=== PATIENT | male | born 1950 | race African-American/Black ===

== ENCOUNTER 2018-08-24 05:55 | Emergency (ER) | payer OTHER ==
--- OUTSIDE RECORDS SUMMARY | 2018-08-24 05:58 | XMS REPORT ---
:1950 [facility] [address] [place] [address] [address] [place] [address] Care Team Providers Name Role Phone Unavailable Unavailable Unavailable Problems This patient has no known problems. Allergies, Adverse Reactions, Alerts This patient has no known allergies or adverse reactions. Medications This patient has no known medications.
[2018-08-24 07:04] LABS: Absolute Lymphocytes (CBC) 2.1 K/uL (0.7-4.9); Absolute Monocytes 0.6 K/uL (0.1-1.3); Absolute Neutrophil 2.7 K/uL (1.8-8.0); Basophils % 0.5 % (0-1.3); Eosinophils % 2.7 % (0-4.4); Hematocrit 41.6 % (39.6-49.0); Lymphocytes % 37.4 % (15.3-44.8); Monocytes % 10.6 % (3.3-12.3); RBC Red Blood Cell Count 4.85 M/uL (4.33-5.43)
[2018-08-24 07:06] LABS: Protime INR 0.91
[2018-08-24 07:25] LABS: ALT/SGPT 21 U/L (12-78); AST/SGOT 15 U/L (15-37); Albumin 3.6 g/dL (3.4-5.0); Alkaline Phosphatase 72 U/L (45-117); BUN Blood Urea Nitrogen 14 mg/dL (7-18); Bicarbonate 29 mmol/L (21-32); Bilirubin Direct 0.1 mg/dL (0-0.2); Bilirubin Total 0.5 mg/dL (0.2-1.0); Glucose Level 110 mg/dL (74-106); Magnesium 1.8 mg/dL (1.8-2.4); NT PRO-BNP 46 pg/mL (<125); Potassium 4.1 mmol/L (3.5-5.1); Protein, Total 7.9 g/dL (6.4-8.2); Sodium Level 140 mmol/L (136-145); Troponin (Emerg Dept Use Only) < 0.02 ng/mL (0.0-0.045)
[2018-08-24] MEDS ORDERED: MECLIZINE HCL 12.5 MG TAB ONE (07:52)
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
[2018-08-24 08:24] VITALS: TEMP 97.8
[2018-08-24 08:27] VITALS: BP 120/80; O2SAT 100
--- NOTE | 2018-08-24 08:34 | RAD REPORT ---
EXAM DESCRIPTION: Kerry Single View08/24/2018 6:58 am CLINICAL HISTORY: Hypertension COMPARISON: none FINDINGS: The lungs appear clear of acute infiltrate. The heart is normal size IMPRESSION: No acute abnormalities displayed
--- NOTE | 2018-08-24 08:37 | EKG ---
Test Date: 2018-08-24 Test Time: 06:21:26 [employer]op Riveting Machine Operator: PRATIK MEASUREMENT RESULTS: Intervals: Rate: 63 AK: 226 QRSD: 82 QT: 396 QTc: 405 [place]: P: 8 AK: 226 QRS: 25 T: 33 INTERPRETIVE STATEMENTS: Sinus rhythm with 1st degree AV block Otherwise normal ECG Compared to ECG 01/11/2017 17:01:50 First degree AV block now present Electronically Signed On 08-24-18 08:36:28 CDT by Seng Virgen
--- NOTE | 2018-08-24 11:54 | RAD REPORT ---
EXAM DESCRIPTION: CT - Head Brain Wo Cont - 08/24/2018 6:47 am CLINICAL HISTORY: The patient is 68 years old and is Male; DIZZINESS TECHNIQUE: Axial computed tomography images of the head/brain without intravenous contrast. Sagitt al and coronal reformatted images were created and reviewed. This CT exam was performed using one o r more of the following dose reduction techniques: automated exposure control, adjustment of the mA and/or kV according to patient size, and/or use of iterative reconstruction technique. COMPARISON: No relevant prior studies available. FINDINGS: BRAIN: Unremarkable. The dougherty-white matter differentiation is preserved . No hemorrhag e. No significant white matter disease. No edema. No extra-axial fluid collections. VENTRICLES: Unremarkable. No ventriculomegaly. BONES/JOINTS: No acute fracture. SOFT TISSUES: Unremarkable. SINUSES: Unremarkable as visualized. No acute sinusitis. MASTOID AIR CELLS: Unremarkable as visualized. No mastoid effusion. IMPRESSION: No acute intracranial findings. Electronically signed by: Tammy Link MD 08/24/2018 6:41 AM CDT Due to temporary technical issues with the PACS/Fluency reporting system, reports are being signed by the in house radiologist as a courtesy to ensure prompt reporting. The interpreting radiologist is f ully responsible for the content of the report.
== END 2018-08-24 08:18 | disposition home or self-care (01) ==
LOC: ER 05:55
DX: H81.10 Benign paroxysmal vertigo, unspecified ear (principal); E11.9 Type 2 diabetes mellitus without complications; I10 Essential (primary) hypertension; Z79.84 Long term (current) use of oral hypoglycemic drugs
CPT/HCPCS: 36415; 70450; 71045; 80048; 80076; 82962; 83735; 83880; 84484; 85025; 85610; 93005; 99284

== ENCOUNTER 2020-02-17 01:52 | Emergency (ER) | payer OTHER ==
--- OUTSIDE RECORDS SUMMARY | 2020-02-17 01:55 | XMS REPORT | Summary of Care ---
:1950 Author Organization [facility] - [facility] Address [address] [place] [address] Care Team Providers Name Role Phone Samuel Oliver MD Insurance Hmo Samuel Oliver MD Primary Care Provider Reason for Visit Reason Comments Refill Request Encounter Details Date Type Department Care Team Description 01/20/[address] [facility] Pediatric and Samuel Siegel MD Refill Request Adult Primary Care- [address] [facility] [id number] [place] [address] [phone] Allergies No Known Allergiesdocumented as of this encounter (statuses as of 01/22/2020) Medications Medication Sig Dispensed Refills Start End Date Status Date fluticasone 50 Use 1 [place] in 16 g 2 Active mcg/actuation nasal each nostril 2 9 sprayIndications: (two) times Allergic rhinitis, daily. unspecified seasonality, unspecified trigger albuterol (PROAIR Inhale 2 Puffs 8.5 g 1 Active HFA) 90 every 4 (four) 9 mcg/actuation hours as inhalerIndications: needed for Allergic rhinitis, Wheezing or unspecified Shortness of seasonality, Breath. unspecified trigger vitamin B-12 Take 1 tablet 90 tablet 0 Act [place] (VITAMIN B-12) by mouth 9 1,000 mcg daily. tabletIndications: Weakness of both lower extremities, B12 deficiency B Complex Vitamins Take 1 tablet 30 tablet 1 Active (B-COMPLEX) by mouth 9 tabletIndications: daily. Weakness of both lower extremities, B12 deficiency furosemide 20 mg Take 1.5 135 tablet 3 Ac tive tabletIndications: tablets by 9 Essential mouth daily. hypertension atorvastatin 10 mg Take 1 tablet 90 tablet 1 Active tabletIndications: by mouth at 9 Controlled type 2 bedtime. diabetes mellitus without complication, without long-term current use of insulin foLIC acid 1 mg Take 1 tablet 30 tablet 0 Active tabletIndications: by mouth 9 Weakness of both daily. lower extremities, B12 deficiency, Dietary folate deficiency Diclofenac Sodium Apply 2-5 100 g 3 Ac tive (VOLTAREN) 1 % grams to 9 gelIndications: area(s) 2 Osteoarthritis of (two) times right knee, daily. unspecified osteoarthritis type, Chronic pain of right knee lancets-blood 1 Each 2 (two) 100 Each 11 A ctive glucose strips 30 times daily. 0 gauge DX E11.9 CmpkIndications: (Brand upon Controlled type 2 insurance diabetes mellitus approval) without complication, without long-term current use of insulin pioglitazone 15 mg Take 1 tablet 90 tablet 3 Active tabletIndications: by mouth 0 Controlled type 2 daily. diabetes mellitus without complication, without long-term current use of insulin blood sugar CHECK SUGARS 1 100 Strip 11 Act katlin diagnostic TIMES A DAY. 0 (PureEnergy SolutionsUCH ULTRA DX CODE E11.9. BLUE TEST STRIP) BRAND PER stripIndications: INSURANCE. Controlled type 2 diabetes mellitus without complication, without long-term current use of insulin Blood-Glucose Meter Check sugars 1 1 Kit 0 Active KitIndications: times a day. 0 Controlled type 2 Dx Code E11.9. diabetes mellitus Brand per without insurance. complication, without long-term current use of insulin LISINOPRIL 20 mg Take 1 tablet 30 tablet 0 Active tabletIndications: by mouth once 0 Essential daily hypertension metFORMIN 1,000 mg Take 1 tablet 60 tablet 0 Active tabletIndications: by mouth 2 0 Controlled type 2 (two) times diabetes mellitus daily with without meals. complication, without long-term current use of insulin METFORMIN 1,000 mg TAKE 1 TABLET 180 tablet 0 Discontinued tabletIndications: BY MOUTH TWICE 0 20 (Reorder) Controlled type 2 DAILY WITH diabetes mellitus MEALS without complication, without long-term current use of insulin LISINOPRIL 20 mg Take 1 tablet 90 tablet 0 01/22/20 Discontinued tabletIndications: by mouth once 0 20 Essential daily hypertension documented as of this encounter (statuses as of 01/22/2020) Active Problems Problem Noted Date Need for influenza vaccination 06/14/2019 Dietary folate deficiency 06/14/2019 Encounter for medication review 01/24/2019 Need for home health care 01/17/2019 Chronic pain of right hand 01/17/2019 Chronic pain of right knee 01/17/2019 Weakness of both lower extremities 01/17/2019 Low testosterone in male 01/17/2019 B12 deficiency 01/17/2019 Need for pneumococcal vaccination 12/22/2018 Diabetic eye exam 12/26/2016 Overview: Added automatically from request for faiza godwin [id number] Essential hypertension 11/26/2016 Osteoarthritis of right knee, unspecified osteoarthrit is type 11/26/2016 Erectile dysfunction, unspecified erectile dysfunction type 11/26/2016 Controlled type 2 diabetes mellitus without complicati on, without 11/26/2016 long-term current use of insulin Obesity, Class III, BMI 40-49.9 (morbid obesity) 11/26 documented as of this encounter (statuses as of 01/22/2020) Resolved Problems Problem Noted Date Resolved Date 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/2017 11/10/2018 Overview: Added automatically from request for faiza godwin [id number] Hemorrhoids, unspecified hemorrhoid type 05/06/2017 11/10/2018 Overview: Added automatically from request for faiza citlali [id number] Nonulcer dyspepsia 12/31/2016 11/10/2018 First degree hemorrhoids 11/26/2016 11/10/2018 documented as of this encounter (statuses as of 01/22/2020) Immunizations Name Administration Dates Next Due Influenza High Dose 06/14/2019 Pneumococcal Polysaccharide, PPSV23 (PNEUMOVAX) 12/20/2018 documented as of this encounter Social History Tobacco Use Types Packs/Day Years Used Date Former Smoker Smokeless Tobacco: Never Used Alcohol Use Drinks/Week oz/Week Comments No 0 Standard drinks or equivalent 0.0 Sex Assigned at Date Recorded Not on file documented as of this encounter Last Filed Vital Signs Not on filedocumented in this encounter Miscellaneous Notes Telephone Encounter - Samuel Oliver MD - 01/22/2020 8:21 AM CDTRx sent x 30 days. Patient to f/u as scheduled. elephone Encounter - Sonam Freedman - 01/21/2020 4:02 PM CDTPatient is calling regarding the refill requesting and is stating that he will be out in a few days. documented in this encounter Plan of Treatment Date Type Specialty Care Team Description 02/12/2020 Office Visit Family Medicine Samuel Oliver MD [address] [place] [address] Dr [address] [place], [place] [address] [phone] Health Maintenance Due Date Last Done Comments DTaP,Tdap,and Td Vaccines (1 - 1969 Tdap) COLON CANCER SCREENING ANNUAL 01/26/2000 FIT/FOBT COLON CANCER SCREENING FIT DNA 01/26/2000 EVERY 3 YEARS COLON CANCER SCREENING 01/26/2000 SIGMOIDOSCOPY EVERY 5 YEARS Zoster Recombinant Vaccine 01/26/2000 (SHINGRIX) (1 of 2) EYE EXAM 01/12/2019 01/12/2018, 01/12/2017 (Previously completed) LDL-C 11/11/2019 11/10/2018, 03/09/2017 URINE MICROALBUMIN 11/11/2019 11/10/2018, 03/09/2017 HgA1C 12/13/2019 06/14/2019, 12/20/2018, 03/06/2018, Additional history exists CREATININE (SERUM) 12/21/2019 12/20/2018, 03/06/2018, 03/09/2017 Medicare Wellness Visit 12/21/2019 12/20/2018, 12/20/2018 INFLUENZA VACCINE (#1) 2020 06/14/2019 FOOT EXAM 01/04/2020 01/03/2019, 01/03/2019, 12/20/2018, Additional history exists Depression Screening 06/14/2020 06/14/2019 COLONOSCOPY 05/26/2027 05/26/2017 Colorectal Cancer Screening 05/26/2027 HEPATITIS C (HCV) SCREEN Completed 03/09/2017 PNEUMOCOCCAL VACCINES 65+ Completed 12/20/2018 LUNG CANCER SCREEN: Recommended Discontinued for age 55-80 with 30 + pack year history documented as of this encounter Results Not on filedocumented in this encounter Visit Diagnoses Diagnosis Essential hypertension Unspecified essential hypertension Controlled type 2 diabetes mellitus with out complication, without long-term current use of insulin documented in this encounter Insurance Payer Benefit Plan / Subscriber ID Effective Phone Address T ype Group Dates [facility] [id number] 2017-Pres Medica re HEALTHCARE - HEALTHCARE ent Adv HM O MANAGED DUAL COMPLETE MEDICARE O [facility] MEDICAID OF [id number] 2016-Pres [phone] [facility] ent [phone] [place] [address] [facility] [id number] 2017-Pres Medica re HEALTHCARE - HEALTHCARE ent Adv PP O MANAGED DUAL COMPLETE MEDICARE [employer] PAID BY I PAID BY [id number] 2016-Pres 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
--- OUTSIDE RECORDS SUMMARY | 2020-02-17 01:55 | XMS REPORT | Summary of Care ---
:1950 Author Organization [facility] - [facility] Address [address] [place] [address] Care Team Providers Name Role Phone Samuel Oliver MD Insurance Hmo Samuel Oliver MD Primary Care Provider Reason for Visit Reason Comments Refill Request Encounter Details Date Type Department Care Team Description 01/05/2020 Refill [facility] Pediatric and Samuel Siegel MD Refill Request Adult Primary Care- [address] [facility] [id number] [place] [address] [phone] Allergies No Known Allergiesdocumented as of this encounter (statuses as of 01/08/2020) Medications Medication Sig Dispensed Refills Start Date End Date Status fluticasone 50 Use 1 [place] in 16 g 2 07/19/2018 Active mcg/actuation nasal each nostril 2 sprayIndications: (two) times Allergic rhinitis, daily. unspecified seasonality, unspecified trigger albuterol (PROAIR HFA) Inhale 2 Puffs 8.5 g 1 07/19/2018 Active 90 mcg/actuation every 4 (four) inhalerIndications: hours as needed Allergic rhinitis, for Wheezing or unspecified Shortness of seasonality, Breath. unspecified trigger vitamin B-12 (VITAMIN Take 1 tablet by 90 tablet 0 01/17/2019 Active B-12) 1,000 mcg mouth daily. tabletIndications: Weakness of both lower extremities, B12 deficiency B Complex Vitamins Take 1 tablet by 30 tablet 1 01/17/2019 Active (B-COMPLEX) mouth daily. tabletIndications: Weakness of both lower extremities, B12 deficiency furosemide 20 mg Take 1.5 tablets 135 tablet 3 01/17/2019 Active tabletIndications: by mouth daily. Essential hypertension atorvastatin 10 mg Take 1 tablet by 90 tablet 1 01/17/2019 Active tabletIndications: mouth at bedtime. Controlled type 2 diabetes mellitus without complication, without long-term current use of insulin foLIC acid 1 mg Take 1 tablet by 30 tablet 0 01/17/2019 Active tabletIndications: mouth daily. Weakness of both lower extremities, B12 deficiency, Dietary folate deficiency Diclofenac Sodium Apply 2-5 grams 100 g 3 2019 Active (VOLTAREN) 1 % to area(s) 2 gelIndications: (two) times Osteoarthritis of daily. right knee, unspecified osteoarthritis type, Chronic pain of right knee lancets-blood glucose 1 Each 2 (two) 100 Each 11 06/14/2019 Active strips 30 gauge times daily. DX CmpkIndications: E11.9 (Brand upon Controlled type 2 insurance diabetes mellitus approval) without complication, without long-term current use of insulin pioglitazone 15 mg Take 1 tablet by 90 tablet 3 06/14/2019 Active tabletIndications: mouth daily. Controlled type 2 diabetes mellitus without complication, without long-term current use of insulin blood sugar diagnostic CHECK SUGARS 1 100 Strip 11 07/28/2019 Active (ONETOUCH ULTRA BLUE TIMES A DAY. DX TEST STRIP) CODE E11.9. BRAND stripIndications: PER INSURANCE. Controlled type 2 diabetes mellitus without complication, without long-term current use of insulin Blood-Glucose Meter Check sugars 1 1 Kit 0 07/28/2019 Active KitIndications: times a day. Dx Controlled type 2 Code E11.9. Brand diabetes mellitus per insurance. without complication, without long-term current use of insulin METFORMIN 1,000 mg TAKE 1 TABLET BY 180 tablet 0 10/22/2019 Active tabletIndications: MOUTH TWICE DAILY Controlled type 2 WITH MEALS diabetes mellitus without complication, without long-term current use of insulin LISINOPRIL 20 mg Take 1 tablet by 90 tablet 0 10/28/2019 Active tabletIndications: mouth once daily Essential hypertension documented as of this encounter (statuses as of 01/08/2020) Active Problems Problem Noted Date Need for [...] Added automatically from request for faiza godwin [id number] Essential hypertension 11/26/2016 Osteoarthritis of right knee, unspecified osteoarthrit is type 11/26/2016 Erectile dysfunction, unspecified erectile dysfunction type 11/26/2016 Controlled type 2 diabetes mellitus without complicati on, without 11/26/2016 long-term current use of insulin Obesity, Class III, BMI 40-49.9 (morbid obesity) 11/26 documented as of this encounter (statuses as of 01/08/2020) Resolved Problems Problem Noted Date Resolved Date 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/2017 11/10/2018 Overview: Added automatically from request for faiza godwin [id number] Hemorrhoids, unspecified hemorrhoid type 05/06/2017 11/10/2018 Overview: Added automatically from request for faiza godwin [id number] Nonulcer dyspepsia 12/31/2016 11/10/2018 First degree hemorrhoids 11/26/2016 11/10/2018 documented as of this encounter (statuses as of 01/08/2020) Immunizations Name Administration Dates Next Due Influenza [...] Telephone Encounter - Samuel Oliver MD - 01/08/2020 4:31 PM CDTAppointment and updated labs required, let patient know documented in this encounter Plan of Treatment Health Maintenance Due Date Last Done Comments [...] filedocumented in this encounter Visit Diagnoses Diagnosis Controlled type 2 diabetes mellitus with out complication, without long-term current use of insulin documented in this encounter Insurance Payer Benefit Plan / Subscriber ID Effective Phone Address T ype Group Dates [facility] [id number] 2017-Pres Medica re HEALTHCARE - HEALTHCARE ent Adv HM O MANAGED DUAL COMPLETE MEDICARE HMO [employer] MEDICAID OF [id number] 2016-Pres [phone] [place] ent [phone] [place] [address] [facility] [id number] 2017-Pres Medica re HEALTHCARE - HEALTHCARE ent Adv PP O MANAGED DUAL COMPLETE MEDICARE [employer] PAID BY I PAID BY [id number] 2016-Pres 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
--- OUTSIDE RECORDS SUMMARY | 2020-02-17 01:55 | XMS REPORT | Continuity of Care Document ---
:1950 Author Organization [facility] t Address [address] [place] [address] Care Team Providers Name Role Phone Melody CHEUNG Attending Clinician Bijan Mera MD Attending Clinician Doctor Unassigned, Name Attending Clinician Unavailable Problems This patient has no known problems. Allergies, Adverse Reactions, Alerts This patient has no known allergies or adverse reactions. Medications This patient has no known medications. Procedures This patient has no known procedures. Encounters Start End Encounter Admission Attending Care Care Encounter Source Date/Time Date/Time Type Type Clinicians Facility Department ID 2020-01-20 2020-01-20 Refill [facility] 1.2.840.114 [id number] 00:00:00 00:00:00 Samuel Varner [id number] [place] [id number] Professio [phone] [address] 2020-01-05 2020-01-05 Refill [facility] 1.2.840.114 [id number] 00:00:00 00:00:00 Samuel Varner [id number] [place] [id number] Professio [phone] [address] 2019-10-28 2019-10-28 Refill [facility] [id number] 00:00:00 00:00:00 Samuel Varner [id number] [place] [id number] Professio [phone] [address] 2019-10-22 2019-10-22 Refill [facility] 1.2.840.114 [id number] 00:00:00 00:00:00 Nikole Varner [id number] [place] [id number] Professio [phone] [address] 2019-08-20 2019-08-20 Pre Visit [facility] 1.2.840.114 [id number] 00:00:00 00:00:00 Outreach Nikole Varner [id number] [place] [id number] Professio [phone] [address] 2019-07-31 2019-07-31 Telephone [facility] 1.2.840.114 [id number] 00:00:00 00:00:00 Samuel Varner [id number] [place] [id number] Professio [phone] [address] 2019-07-31 2019-07-31 Orders Doctor ANTOINE 1.2.840.114 [id number] 00:00:00 00:00:00 Only Unassigned, COLT [id number] [facility] 4.2.7.2.686 [phone] 009 2019-07-27 2019-07-27 Telephone [facility] 1.2.840.114 [id number] 00:00:00 00:00:00 Samuel Varner [id number] [place] [id number] Professio [phone] [address] 2019-07-20 2019-07-20 Orders Doctor ANTOINE 1.2.840.114 [id number] 00:00:00 00:00:00 Only Unassigned, COLT [id number] [facility] 4.2.7.2.686 [id number] [id number] 2019-07-18 2019-07-18 Refill [facility] 1.2.840.114 [id number] 00:00:00 00:00:00 Samuel Varner [id number] [place] 4.2.7.2.686 Professio [phone] [address] 2019-07-18 2019-07-18 Refill [facility] 1.2.840.114 [id number] 00:00:00 00:00:00 Samuel Varner [id number] [place] 4.2.7.2.686 Professio [phone] [address] 2019-07-02 2019-07-02 [facility] 1.2.840.114 [id number] 00:00:00 00:00:00 Samuel Varner [id number] [place] [id number] Professio [phone] [address] 2019-06-28 2019-06-28 [facility] 1.2.840.114 [id number] 00:00:00 00:00:00 Samuel Varner [id number] [place] [id number] Professio [phone] [address] 2019-06-22 2019-06-22 [facility] 1.2.840.114 [id number] 00:00:00 00:00:00 Samuel Varner [id number] [place] [id number] Professio [phone] [address] 2019-06-14 2019-06-14 Office [facility] 1.2.840.114 [id number] 07:28:15 08:33:50 Visit Samuel Varner [id number] [place] [id number] Professio [phone] [address] Results This patient has no known results.
[2020-02-17 03:02] LABS: Absolute Lymphocytes (CBC) 2.2 K/uL (0.7-4.9); Basophils % 0.6 % (0-1.3); Hematocrit 38.7 % (39.6-49.0); Lymphocytes % 48.2 % (15.3-44.8); RBC Red Blood Cell Count 4.33 M/uL (4.33-5.43)
[2020-02-17] MEDS ORDERED: MECLIZINE HCL 12.5 MG TAB ONE (03:08)
[2020-02-17] MEDS ORDERED: NA CHLORIDE 0.9% 500 ML ONE (03:08)
[2020-02-17 03:22] LABS: ALT/SGPT 20 U/L (12-78); AST/SGOT 11 U/L (15-37); Albumin 3.3 g/dL (3.4-5.0); Alkaline Phosphatase 67 U/L (45-117); BUN Blood Urea Nitrogen 17 mg/dL (7-18); Bicarbonate 29 mmol/L (21-32); Bilirubin Direct < 0.1 mg/dL (0-0.2); Bilirubin Total 0.2 mg/dL (0.2-1.0); Glucose Level 105 mg/dL (74-106); Magnesium 1.9 mg/dL (1.8-2.4); NT PRO-BNP 29 pg/mL (<125); Potassium 4.2 mmol/L (3.5-5.1); Sodium Level 140 mmol/L (136-145); Troponin (Emerg Dept Use Only) < 0.02 ng/mL (0.0-0.045)
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
[2020-02-17 04:33] LABS: Urine Blood NEGATIVE (NEG); Urine Glucose NEGATIVE (NEG); Urine Protein NEGATIVE (NEG); Urine Specific Gravity 1.015 (1.005-1.030); Urine pH 5.5 (5.0-7.0)
[2020-02-17 04:43] VITALS: O2SAT 100
[2020-02-17 04:45] VITALS: BP 134/84; TEMP 98.4
--- NOTE | 2020-02-17 11:55 | RAD REPORT ---
EXAM DESCRIPTION: RAD - Chest Single View - 02/17/2020 3:05 am CLINICAL HISTORY: COUGH Chest pain. COMPARISON: Chest Single View dated 08/24/2018 FINDINGS: Portable technique limits examination quality. The lungs are grossly clear. The heart is upper limit of normal in size. No displaced fractures. IMPRESSION: No acute intrathoracic process suspected.
--- NOTE | 2020-02-17 14:19 | RAD REPORT ---
EXAM DESCRIPTION: CT of the head without contrast CLINICAL HISTORY: DIZZINESS COMPARISON: 08/24/1989 TECHNIQUE: Axial CT of the head obtained from the skull apex to the skull base without contrast. FINDINGS: No acute intracranial hemorrhage identified. No mass, mass effect, shift of the midline, a bnormal extra-axial fluid collection or CT evidence of acute ischemic change identified. The ventricu lar system and sulcal spaces are mildly enlarged compatible with mild cerebral atrophy. Scattered a reas of hypodensity throughout the supratentorial white matter are nonspecific and may be related to chronic small vessel ischemic change. The visualized paranasal sinuses and the mastoids are clear. No skull fracture identified. Visualiz ed orbits and globes are unremarkable. Atherosclerotic calcification of the intracranial internal car otid arteries. IMPRESSION: 1. No acute intracranial abnormality by CT criteria. This exam was performed according to our departmental dose-optimization program, which includes autom ated exposure control, adjustment of the mA and/or kV according to patient size and/or use of iterati ve reconstruction technique. Electronically signed by: Tra Harding 02/17/2020 4:05 AM CDT Electronically signed by: Dieter Starr MD 02/16/2020 7:55 AM CDT [id number] to te mporary technical issues with the PACS/Fluency reporting system, reports are being signed by the in h ouse Radiologist without review as a courtesy to ensure prompt reporting. The interpreting radiologis t is fully responsible for the content of the report.
== END 2020-02-17 04:31 | disposition home or self-care (01) ==
LOC: ER 01:52
DX: R42 Dizziness and giddiness (principal); H82.9 Vertiginous syndromes in diseases classified elsewhere, unspecified ear; E11.9 Type 2 diabetes mellitus without complications; I10 Essential (primary) hypertension
CPT/HCPCS: 93005; 85025; 80048; 36415; 83735; 80076; 81003; 84484; 83880; 70450; 71045; 96360; 99284; J7040

== ENCOUNTER 2022-01-09 11:41 | Emergency (ER) | payer OTHER ==
--- OUTSIDE RECORDS SUMMARY | 2022-01-09 11:49 | XMS REPORT | Continuity of Care Document ---
:1950 Author Organization [facility] t Address [address] [place] [address] Care Team Providers Name Role Phone MELITON OLIVER Primary Care Physician Unavailable MELITON OLIVER Attending Clinician Unavailable Angela SHANNON Attending Clinician Unavailable Angela George Attending Clinician Doctor Unassigned, [place] Attending Clinician Unavailable Meliton Oliver MD Attending Clinician DELFINO CHUNG Attending Clinician Unavailable Nikole Mera MD Attending Clinician [phone] Angela SHANNON Admitting Clinician Unavailable Payers Payer Name Policy Type Policy Number Effective Date Expiration Date S ource [place]ICAID [place] [id number] 2020 00:00:00 [facility] [id number] 2017 DUAL COMPLETE HMO 00:00:00 Problems Condition Condition Condition Status Onset Resolution Last Treating Co mments Source Name Details Category Date Date Treatment Clinician Date Obesity Obesity Disease Active 2020-05 Univers (BMI (BMI 2-22 ity of 30-39.9) 30-39.9) 00:00: [place] [id number] Medical Branch Itchy skin Itchy skin Disease Active U nivers 6-22 ity of 00:00: [address] Branch Allergic Allergic Disease Active Unive rs contact contact 6-22 [place]y of dermatitis [place] to due to 00 Medical cosmetics cosmetics Bran ch Seasonal Seasonal Disease Active Unive rs allergic allergic 6-22 ity of rhinitis rhinitis 00:00: [place] due to due to 00 Medical other other Branch allergic allergic trigger trigger Osteoarthr Osteoarthr Disease Active U nivers itis itis 6-22 ity of involving [place] multiple multiple 00 Medica [place] joints on joints on Bran ch both sides both sides of body of body Dyslipidem Dyslipidem Disease Active 2019-05 U nivers ia ia 2-29 ity of 00:00: [place] 00 Medical Branch Vertigo, Vertigo, Disease Active 2019-05 Unive rs aural, aural, 1-03 ity of unspecifie unspecifie 00:00[place] d d 00 Medical laterality laterality Br anch Tinnitus, Tinnitus, Disease Active 2019-05 Uni vers unspecifie unspecifie 03 it y of d d 00:00: [place] laterality laterality 00 Me dical Branch Need for Need for Disease Active Unive rs COVID-19 COVID-19 2-13 ity of vaccine vaccine 00:00: [place] 00 Medical Branch Dietary Dietary Disease Active Univers folate folate 2-13 ity of deficiency deficiency 00:[place]: [place] [facility] [place] Screening Screening Disease Active Uni vers for AAA for AAA 25 ity of (abdominal (abdominal 00:00: [place] aortic aortic 00 Medical aneurysm) aneurysm) Bran ch Chronic Chronic Disease Active Univers pain of pain of 9-18 ity of right hand right hand 00:00: [place] [facility] [place] Bilateral Bilateral Disease Active Uni vers chronic chronic 9-18 ity of knee pain knee pain 00:[place] Low Low Disease Active Univers testostero testostero 9-18 it y of ne in male ne in male 00:[place]: [place] [facility] [place] Need for Need for Disease Active Unive rs home home 9-18 ity of health health 00:00: [place] care care 00 Medical Branch Weakness Weakness Disease Active Unive rs of both of both 918 ity of lower lower 00:00: [place] extremitie extremitie 00 Me dical s s Branch B12 B12 Disease Active Univers deficiency deficiency 9-18 it y of 00:00: [place] 00 Medical Branch Need for Need for Disease Active Unive rs pneumococc pneumococc 12-22 it y of al al 00:00: [place] vaccinatio vaccinatio 00 Me dical n n Branch Diabetic Diabetic Disease Active Overview: Un greg eye exam eye exam 12-26 Formattin ity of 00:00: g of this 00 note Medical might be Branch different from the original. Added automatic ally from request for surgery [id number] Obesity, Obesity, Disease Active Unive rs Class III, Class III, 11-26 it y of BMI BMI 00:00: [place] 40-49.9 40-49.9 00 Medical (morbid (morbid Branch obesity) obesity) Essential Essential Disease Active Uni vers hypertensi hypertensi 11-26 it y of on on 00:00: [place] 00 Medical Branch Osteoarthr Osteoarthr Disease Active U nivers itis of itis of 11-26 ity of right right 00:00: [place] knee, knee, 00 Medical unspecifie unspecifie Br anch d d osteoarthr osteoarthr itis type itis type Erectile Erectile Disease Active Unive rs dysfunctio dysfunctio 11-26 it y of n, n, 00:00: [place] unspecifie unspecifie 00 Me dical d erectile d erectile Br anch dysfunctio dysfunctio n type n type Controlled Controlled Disease Active U nivers type 2 type 2 11-26 ity of diabetes diabetes 00:00: [place] mellitus mellitus 00 Medica l without without Branch complicati complicati on, on, without without long-term long-term current current use of use of insulin insulin Allergies, Adverse Reactions, Alerts Allergy Allergy Status Severity Reaction(s) Onset Inactive Treating Comm ents Source Name Type Date Date Clinician NO KNOWN Drug Active Univers ALLERGIE Class ity of S [facility] Social History Social Habit Start Date Stop Date Quantity Comments Source History of Current smoker University of tobacco use [facility] Exposure to 2021-12-15 2021-12-25 Unable to assess Univers ity of SARS-CoV-2 00:00:00 13:34:00 [place] Medical (event) Branch Alcohol intake 2021-11-01 2021-11-01 0 /d University of 00:00:00 00:00:00 [facility] Tobacco use and 2016-05-05 2016-05-05 Smokeless tobacco Un iversity of exposure 00:00:00 00:00:00 non-user [facility] Sex Ass[birth year] At [birth year] Universit y of 00:00:00 00:00:00 [facility] Smoking Status Start Date Stop Date Source Ex-smoker 2016-05-05 00:00:00 2016-05-05 00:00:00 [facility] Medications Ordered Filled Start Stop Current Ordering Indication Dosage Frequency Signature Comments Components Source Medication Medication Date Date Medication? Clinician (SIG) Name Name naproxen 500mg 500 mg, Univ ers (NAPROSYN) 12-25 Oral, ity of tablet 500 20:45: 19:45 ONCE, 1 [place] mg 00 :00 dose, On Medical Fri Branch 12/25/21 at 1545, Routine naproxen Yes [id number] 500mg Take 1 Univers (NAPROSYN) 12-25 9105 tablet by ity of 500 mg 00:00: mouth in [place] tablet 00 the Medical morning Branch and 1 tablet in the evening. Take with meals. FLUTICASONE Yes [id number] Use 1 Univers PROPIONATE 7-14 spray(s) ity o f 50 00:00: in each [place] mcg/actuati nostril Medic al on nasal twice Branch spray daily FLUTICASONE Yes [id number] Use 1 Univers PROPIONATE 7-14 spray(s) ity o f 50 00:00: in each [place] mcg/actuati nostril Medic al on nasal twice Branch spray daily FLUTICASONE Yes [id number] Use 1 Univers PROPIONATE 7-14 spray(s) ity o f 50 00:00: in each [place] mcg/actuati nostril Medic al on nasal twice Branch spray daily FLUTICASONE Yes [id number] Use 1 Univers PROPIONATE 7-14 spray(s) ity o f 50 00:00: in each [place] mcg/actuati nostril Medic al on nasal twice Branch spray daily FLUTICASONE Yes [id number] Use 1 Univers PROPIONATE 7-14 spray(s) ity o f 50 00:00: in each [place] mcg/actuati 00 nostril Medic al on nasal twice Branch spray daily FLUTICASONE Yes [id number] Use 1 Univers PROPIONATE 7-14 spray(s) ity o f 50 00:00: in each [place] mcg/actuati 00 nostril Medic al on nasal twice Branch spray daily albuterol Yes [id number] INHALE 2 Univers (PROAIR 6-29 PUFFS BY ity of HFA) 90 00:00: MOUTH [place] mcg/actuati 00 EVERY 4 Medic al on inhaler HOURS Branc h NEEDED FOR WHEEZING FOR SHORTNESS OF BREATH albuterol Yes [id number] INHALE 2 Univers (PROAIR 6-29 PUFFS BY ity of HFA) 90 00:00: MOUTH [place] mcg/actuati 00 EVERY 4 Medic al on inhaler HOURS Branc h NEEDED FOR WHEEZING FOR SHORTNESS OF BREATH albuterol Yes [id number] INHALE 2 Univers (PROAIR 6-29 PUFFS BY ity of HFA) 90 00:00: MOUTH [place] mcg/actuati 00 EVERY 4 Medic al on inhaler HOURS Branc h NEEDED FOR WHEEZING FOR SHORTNESS OF BREATH albuterol Yes [id number] INHALE 2 Univers (PROAIR 6-29 PUFFS BY ity of HFA) 90 00:00: MOUTH [place] mcg/actuati 00 EVERY 4 Medic al on inhaler HOURS Branc h NEEDED FOR WHEEZING FOR SHORTNESS OF BREATH PROAIR HFA 0 2021- No INHALE 2 Un greg 90 6-29 06-29 PUFFS BY ity of mcg/actuati 00:00: 00:00 MOUTH [place] on inhaler 00 :00 EVERY 4 Medica l HOURS Branch NEEDED FOR WHEEZING FOR SHORTNESS OF BREATH FLUTICASONE 0 Yes [id number] Use 1 Univers PROPIONATE 5-24 spray(s) ity o f 50 00:00: in each [place] mcg/actuati 00 nostril Medic al on nasal twice Branch spray daily FLUTICASONE 0 202- No [id number] Use 1 Univers PROPIONATE 5-24 07-14 spray(s) ity of 50 00:00: 00:00 in each [place] mcg/actuati 00 :00 nostril Medic al on nasal twice Branch spray daily Diclofenac Yes [id number] APPLY 2-5 Univers Sodium 1 % 3-25 GRAMS ity of gel 00:00: TOPICALLY 00 TO AREA(S) Medical TWICE A Branch DAY Diclofenac Yes [id number] APPLY 2-5 Univers Sodium 1 % 3-25 GRAMS ity of gel 00:00: TOPICALLY 00 TO AREA(S) Medical TWICE A Branch DAY Diclofenac Yes [id number] APPLY 2-5 Univers Sodium 1 % 3-25 GRAMS ity of gel 00:00: TOPICALLY 00 TO AREA(S) Medical TWICE A Branch DAY Diclofenac Yes [id number] APPLY 2-5 Univers Sodium 1 % 3-25 GRAMS ity of gel 00:00: TOPICALLY 00 TO AREA(S) Medical TWICE A Branch DAY PIOGLITAZON Yes [id number] Take 1 Univers E 15 mg 1-06 tablet by ity of tablet 00:00: mouth once [place] daily Medical Branch PIOGLITAZON Yes [id number] Take 1 Univers E 15 mg 1-06 tablet by ity of tablet 00:00: mouth once [place] daily Medical Branch PIOGLITAZON Yes [id number] Take 1 Univers E 15 mg 1-06 tablet by ity of tablet 00:00: mouth once [place] daily Medical Branch PIOGLITAZON Yes [id number] Take 1 Univers E 15 mg 1-06 tablet by ity of tablet 00:00: mouth once [place] 00 daily Medical Branch ergocalcife 2020-05 Yes [id number] Take 1 Univers rol, 2-22 capsule by ity of vitamin d2, 00:00: mouth [place] 1,250 mcg 00 weekly. Medical (50,000 Branch unit) capsule B Complex 2020-05 Yes [id number] 1{tbl} Take 1 Univers Vitamins 2-22 tablet by ity of (B-COMPLEX) 00:00: mouth [place] tablet 00 daily. Medical Branch atorvastati 2020-05 Yes [id number] 10mg Take 1 Univers n 10 mg 2-22 tablet by ity of tablet 00:00: mouth at [place] 00 bedtime. Medical Branch metFORMIN 2020-05 Yes [id number] 500mg Take 1 Univers 500 mg 2-22 tablet by ity of tablet 00:00: mouth 2 [place] 00 (two) Medical times Branch daily with meals. lisinopriL 2020-05 Yes [id number] 20mg Take 1 U nivers 20 mg 2-22 tablet by ity of tablet 00:00: mouth [place] 00 daily. Medical Branch furosemide 2020-05 Yes [id number] 20mg Take 1 U nivers 20 mg 2-22 tablet by ity of tablet 00:00: mouth [place] 00 daily. Medical Branch aspirin 2020-05 Yes [id number] 81mg Take 1 Univ ers (ADULT LOW 2-22 tablet by ity of DOSE 00:00: mouth [place] ASPIRIN) 81 00 daily. Medica l mg EC Branch tablet lancets 2020-05 Yes [id number] USE Uni vers (ONETOUCH 2-22 DIRECTED ity of DELICA PLUS 00:00: TWICE [place] LANCET) 33 00 DAILY Medical gauge Misc Branch lancets-blo 2020-05 Yes [id number] 1{each} 1 Each 2 Univers od glucose 2-22 (two) ity of strips 30 00:00: times [place] gauge Cmpk 00 daily. DX Medi freddy E11.9 Branch (Brand upon insurance approval) ergocalcife 2020-05 Yes [id number] Take 1 Univers rol, 2-22 capsule by ity of vitamin d2, 00:00: mouth [place] 1,250 mcg 00 weekly. Medical (50,000 Branch unit) capsule B Complex 2020-05 Yes [id number] 1{tbl} Take 1 Univers Vitamins 2-22 tablet by ity of (B-COMPLEX) 00:00: mouth [place] tablet 00 daily. Medical Branch atorvastati 2020-05 Yes [id number] 10mg Take 1 Univers n 10 mg 2-22 tablet by ity of tablet 00:00: mouth at [place] 00 bedtime. Medical Branch metFORMIN 2020-05 Yes [id number] 500mg Take 1 Univers 500 mg 2-22 tablet by ity of tablet 00:00: mouth 2 [place] 00 (two) Medical times Branch daily with meals. lisinopriL 2020-05 Yes [id number] 20mg Take 1 U nivers 20 mg 2-22 tablet by ity of tablet 00:00: mouth [place] 00 daily. Medical Branch furosemide 2020-05 Yes [id number] 20mg Take 1 U nivers 20 mg 2-22 tablet by ity of tablet 00:00: mouth [place] 00 daily. Medical Branch aspirin 2020-05 Yes [id number] 81mg Take 1 Univ ers (ADULT LOW 2-22 tablet by ity of DOSE 00:00: mouth [place] ASPIRIN) 81 00 daily. Medica l mg EC Branch tablet lancets 2020-05 Yes [id number] USE Uni vers (ONETOUCH 2-22 DIRECTED ity of DELICA PLUS 00:00: TWICE [place] LANCET) 33 00 DAILY Medical gauge [facility] lancets-blo 2020-05 Yes [id number] 1{each} 1 Each 2 Univers od glucose 2-22 (two) ity of strips 30 00:00: times [place] gauge Cmpk 00 daily. DX Medi freddy E11.9 Branch (Brand upon insurance approval) ergocalcife 2020-05 Yes [id number] Take 1 Univers rol, 2-22 capsule by ity of vitamin d2, 00:00: mouth [place] 1,250 mcg 00 weekly. Medical (50,000 Branch unit) capsule B Complex 2020-05 Yes [id number] 1{tbl} Take 1 Univers Vitamins 2-22 tablet by ity of (B-COMPLEX) 00:00: mouth [place] tablet 00 daily. Medical Branch atorvastati 2020-05 Yes [id number] 10mg Take 1 Univers n 10 mg 2-22 tablet by ity of tablet 00:00: mouth at [place] 00 bedtime. Medical Branch metFORMIN 2020-05 Yes [id number] 500mg Take 1 Univers 500 mg 2-22 tablet by ity of tablet 00:00: mouth 2 [place] 00 (two) Medical times Branch daily with meals. lisinopriL 2020-05 Yes [id number] 20mg Take 1 U nivers 20 mg 2-22 tablet by ity of tablet 00:00: mouth [place] 00 daily. Medical Branch furosemide 2020-05 Yes [id number] 20mg Take 1 U nivers 20 mg 2-22 tablet by ity of tablet 00:00: mouth [place] 00 daily. Medical Branch aspirin 2020-05 Yes [id number] 81mg Take 1 Univ ers (ADULT LOW 2-22 tablet by ity of DOSE 00:00: mouth [place] ASPIRIN) 81 00 daily. Medica l mg EC Branch tablet lancets 2020-05 Yes [id number] USE Uni vers (ONETOUCH 2-22 DIRECTED ity of DELICA PLUS 00:00: TWICE [place] LANCET) 33 00 DAILY Medical gauge [facility] lancets-blo 2020-05 Yes [id number] 1{each} 1 Each 2 Univers od glucose 2-22 (two) ity of strips 30 00:00: times [place] gauge Cmpk 00 daily. DX Medi freddy E11.9 Branch (Brand upon insurance approval) ergocalcife 2020-05 Yes [id number] Take 1 Univers rol, 2-22 capsule by ity of vitamin d2, 00:00: mouth [place] 1,250 mcg 00 weekly. Medical (50,000 Branch unit) capsule B Complex 2020-05 Yes [id number] 1{tbl} Take 1 Univers Vitamins 2-22 tablet by ity of (B-COMPLEX) 00:00: mouth [place] tablet 00 daily. Medical Branch atorvastati 2020-05 Yes [id number] 10mg Take 1 Univers n 10 mg 2-22 tablet by ity of tablet 00:00: mouth at [place] 00 bedtime. Medical Branch metFORMIN 2020-05 Yes [id number] 500mg Take 1 Univers 500 mg 2-22 tablet by ity of tablet 00:00: mouth 2 [place] 00 (two) Medical times Branch daily with meals. lisinopriL 2020-05 Yes [id number] 20mg Take 1 U nivers 20 mg 2-22 tablet by ity of tablet 00:00: mouth [place] 00 daily. Medical Branch furosemide 2020-05 Yes [id number] 20mg Take 1 U nivers 20 mg 2-22 tablet by ity of tablet 00:00: mouth [place] 00 daily. Medical Branch aspirin 2020-05 Yes [id number] 81mg Take 1 Univ ers (ADULT LOW 2-22 tablet by ity of DOSE 00:00: mouth [place] ASPIRIN) 81 00 daily. Medica l mg EC Branch tablet lancets 2020-05 Yes [id number] USE Uni vers (ONETOUCH 2-22 DIRECTED ity of DELICA PLUS 00:00: TWICE [place] LANCET) 33 00 DAILY Medical gauge [facility] lancets-blo 2020-05 Yes [id number] 1{each} 1 Each 2 Univers od glucose 2-22 (two) ity of strips 30 00:00: times [place] gauge Cmpk 00 daily. DX Medi freddy E11.9 Branch (Brand upon insurance approval) foLIC acid 0 Yes [id number] 1mg Take 1 Un greg 1 mg tablet 6-22 tablet by ity of 00:00: mouth [place] 00 daily. Medical Branch vitamin 2020-0 Yes [id number] 1000ug Take 1 Uni vers B-12 6-22 tablet by ity of (VITAMIN 00:00: mouth [place] B-12) 1,000 00 daily. Medica l mcg tablet Branch foLIC acid 0 Yes [id number] 1mg Take 1 Un greg 1 mg tablet 6-22 tablet by ity of 00:00: mouth [place] 00 daily. Medical Branch vitamin 2020-0 Yes [id number] 1000ug Take 1 Uni vers B-12 6-22 tablet by ity of (VITAMIN 00:00: mouth [place] B-12) 1,000 00 daily. Medica l mcg tablet Branch foLIC acid Yes [id number] 1mg Take 1 Un greg 1 mg tablet 6-22 tablet by ity of 00:00: mouth [place] 00 daily. Medical Branch vitamin 2020-0 Yes [id number] 1000ug Take 1 Uni vers B-12 6-22 tablet by ity of (VITAMIN 00:00: mouth [place] B-12) 1,000 00 daily. Medica l mcg tablet Branch foLIC acid 0 Yes [id number] 1mg Take 1 Un greg 1 mg tablet 6-22 tablet by ity of 00:00: mouth [place] 00 daily. Medical Branch vitamin 2020-0 Yes [id number] 1000ug Take 1 Uni vers B-12 6-22 tablet by ity of (VITAMIN 00:00: mouth [place] B-12) 1,000 00 daily. Medica l mcg tablet Branch ONETOUCH Yes [id number] CHECK Uni vers ULTRA BLUE 5-25 BLOOD ity of TEST STRIP 00:00: SUGAR ONE [place] strip 00 A DAY Medical Branch ONETOUCH 2020-0 Yes [id number] CHECK Uni vers ULTRA BLUE 5-25 BLOOD ity of TEST STRIP 00:00: SU[place]AR ONE [place] strip 00 A DAY Medical Branch ONETOUCH 2020-0 Yes [id number] CHECK Uni vers ULTRA BLUE 5-25 BLOOD ity of TEST STRIP 00:00: SUGAR ONE [place] strip 00 A DAY Medical Branch ONETOUCH Yes [id number] CHECK Uni vers ULTRA BLUE 5-25 BLOOD ity of TEST STRIP 00:00: SU[place]AR ONE [place] strip 00 A DAY Medical Branch meclizine 2019- Yes [id number] 12.5mg Take 1 Univers 12.5 mg 1-03 tablet by ity of tablet 00:00: mouth 3 (three) Medical times Branch daily as needed for Dizziness. nortriptyli 2019-05 Yes [id number] 50mg Take 1 Univers ne 50 mg 1-03 capsule by ity o f capsule 00:00: mouth at [place] 00 bedtime. Medical Branch meclizine 2019- Yes [id number] 12.5mg Take 1 Univers 12.5 mg 1-03 tablet by ity of tablet 00:00: mouth 3 (three) Medical times Branch daily as needed for Dizziness. nortriptyli 2019-05 Yes [id number] 50mg Take 1 Univers ne 50 mg 1-03 capsule by ity o f capsule 00:00: mouth at [place] bedtime. Medical Branch meclizine 2019- Yes [id number] 12.5mg Take 1 Univers 12.5 mg 1-03 tablet by ity of tablet 00:00: mouth 3 (three) Medical times Branch daily as needed for Dizziness. nortriptyli 2019-05 Yes [id number] 50mg Take 1 Univers ne 50 mg 1-03 capsule by ity o f capsule 00:00: mouth at [place] bedtime. Medical Branch meclizine 2019- Yes [id number] 12.5mg Take 1 Univers 12.5 mg 1-03 tablet by ity of tablet 00:00: mouth 3 [place] (three) Medical times Branch daily as needed for Dizziness. nortriptyli 2019-05 Yes [id number] 50mg Take 1 Univers ne 50 mg 1-03 capsule by ity o f capsule 00:00: mouth at [place] bedtime. Medical Branch Blood-Gluco Yes [id number] Check Univers se Meter 3-28 sugars 1 ity of Kit 00:00: times a [place] day. Dx Medical Code Branch E11.9. Brand per insurance. Blood-Gluco Yes [id number] Check Univers se Meter 3-28 sugars 1 ity of Kit 00:00: times a day. Dx Medical Code Branch E11.9. Brand per insurance. Blood-Gluco 2020-0 Yes [id number] Check Univers se Meter 3-28 sugars 1 ity of Kit 00:00: times a day. Dx Medical Code Branch E11.9. Brand per insurance. Blood-Gluco 2020-0 Yes [id number] Check Univers se Meter 3-28 sugars 1 ity of Kit 00:00: times a day. Dx Medical Code Branch E11.9. Brand per insurance. Immunizations Ordered Filled Immunization Date Status Comments [facility] Immunization Name Name SARS-COV-2 COVID-19 2021-10-28 Completed Unive rsity of MODERNA 0.25ML 00:00:00 [place] Medi freddy BOOSTER VACCINE Branch SARS-COV-2 COVID-19 2021-10-28 Completed Unive rsity of MODERNA 0.25ML 00:00:00 [place] Medi freddy BOOSTER VACCINE Branch SARS-COV-2 COVID-19 2021-10-28 Completed Unive rsity of MODERNA 0.25ML 00:00:00 [place] Medi freddy BOOSTER VACCINE Branch SARS-COV-2 COVID-19 2021-10-28 Completed Unive rsity of MODERNA 0.25ML 00:00:00 [place] Medi freddy BOOSTER VACCINE Branch Pneumococcal 2021-10-27 Completed University o f Polysaccharide, 00:00:00 [place] Med ical PPSV23 (PNEUMOVAX) Branch Pneumococcal 2021-10-27 Completed University o f Polysaccharide, 00:00:00 [place] Med ical PPSV23 (PNEUMOVAX) Branch Pneumococcal 2021-10-27 Completed University o f Polysaccharide, 00:00:00 [place] Med ical PPSV23 (PNEUMOVAX) Branch Pneumococcal 2021-10-27 Completed University o f Polysaccharide, 00:00:00 [place] Med ical PPSV23 (PNEUMOVAX) Branch SARS-COV-2 COVID-19 2021-04-22 Completed Unive rsity of MODERNA VACCINE 00:00:00 [place] Med ical Branch SARS-COV-2 COVID-19 2021-04-22 Completed Unive rsity of MODERNA VACCINE 00:00:00 [place] Med ical Branch SARS-COV-2 COVID-19 2021-04-22 Completed Unive rsity of MODERNA VACCINE 00:00:00 [place] Med ical Branch SARS-COV-2 COVID-19 2021-04-22 Completed Unive rsity of MODERNA VACCINE 00:00:00 [facility] SARS-COV-2 COVID-19 2020-07-30 Completed Unive rsity of MODERNA VACCINE 00:00:00 [facility] SARS-COV-2 COVID-19 2020-07-30 Completed Unive rsity of MODERNA VACCINE 00:00:00 [facility] SARS-COV-2 COVID-19 2020-07-30 Completed Unive rsity of MODERNA VACCINE 00:00:00 [facility] SARS-COV-2 COVID-19 2020-07-30 Completed Unive rsity of MODERNA VACCINE 00:00:00 [facility] Influenza High Dose 2019-06-14 Completed Unive rsity of 00:00:00 [facility] Influenza High Dose 2019-06-14 Completed Unive rsity of 00:00:00 [facility] Influenza High Dose 2019-06-14 Completed Unive rsity of 00:00:00 [facility] Influenza High Dose 2019-06-14 Completed Unive rsity of 00:00:00 [facility] Pneumococcal 2018-12-20 Completed University o f Polysaccharide, 00:00:00 [facility] [place] [facility] ical PPSV23 (PNEUMOVAX) Branch Pneumococcal 2018-12-20 Completed University o f Polysaccharide, 00:00:00 [facility] [place] [facility] ical PPSV23 (PNEUMOVAX) Branch Pneumococcal 2018-12-20 Completed University o f Polysaccharide, 00:00:00 [facility] [place] [facility] ical PPSV23 (PNEUMOVAX) Branch Pneumococcal 2018-12-20 Completed University o f Polysaccharide, 00:00:00 [facility] PPSV23 (PNEUMOVAX) Branch Vital Signs Vital Name Observation Time Observation Value Comments Source Systolic blood 2021-12-25 21:00:00 148 mm[Hg] Univer sity of pressure [facility] Diastolic blood 2021-12-25 21:00:00 98 mm[Hg] Unive rsity of pressure [facility] Heart rate 2021-12-25 21:00:00 70 /min Universi of [facility] Respiratory rate 2021-12-25 21:00:00 18 /min Univ ersity of [facility] Oxygen saturation in 2021-12-25 21:00:00 96 /min University of Arterial blood by [facility] Pulse oximetry Branch Body temperature 2021-12-25 18:41:[address] [facility] ersity of [place] [facility] [place] Body height 2021-12-25 18:41:00 188 cm Universi ty of [place] [facility] [place] Body weight 2021-12-25 18:41:00 155.13 kg Universi ty of [facility] BMI 2021-12-25 18:41:00 43.91 kg/m2 Universi ty of [facility] Systolic blood 2021-10-28 19:48:00 134 mm[Hg] Univer sity of pressure [facility] Diastolic blood 2021-10-28 19:48:00 74 mm[Hg] Unive rsity of pressure [facility] Heart rate 2021-10-28 19:46:00 72 /min Universi ty of [facility] Body temperature 2021-10-28 19:46:[address] [facility] 2021-10-28 19:46:00 18 /min [facility] ersity of [facility] Body height 2021-10-28 19:46:00 188 cm Universi ty of [place] [facility] [place] Body weight 2021-10-28 19:46:00 155.13 kg Universi ty of [place] [facility] [place] BMI 2021-10-28 19:46:00 43.91 kg/m2 Universi ty of [facility] Oxygen saturation in 2021-10-28 19:46:00 96 /min University of Arterial blood by [facility] Pulse oximetry Branch Procedures Procedure Date / Time Performed Performing Clinician [place] e XR KNEE 3 VW LEFT 2021-12-25 19:19:30 Angela Shannon [facility] CONSENT/REFUSAL FOR 2021-12-25 18:34:36 Doctor Unassigned, [facility] Name Medical Branch TREATMENT EXTERNAL PROVIDER 2021-11-14 05:01:00 Doctor Unassigned, No [facility] Name [facility] Branch Encounters Start End Encounter Admission Attending Care Care Encounter Source Date/Time Date/Time Type Type Clinicians Facility Department ID 2022-01-29 2022-01-29 Outpatient Jamel OLIVER [facility] [id number] [facility] 13:20:00 13:20:00 MELITON huston [facility] 2021-12-25 2021-12-25 Emergency X Angela SHANNON [facility] ERT [id number] Univers 13:43:00 16:32:00 ity of [facility] 2021-12-25 2021-12-25 Emergency Angela Shannon [facility] 1.2.840.114 [id number] Univers 13:43:00 16:32:00 Misa VARNER [id number] i [place] [phone] [facility] 084 [place] 2021-11-14 2021-11-14 Orders Doctor ANTOINE 1.2.840.114 [id number] Univers 00:00:00 00:00:00 Only Unassigned, COLT 350.1.13.10 ity of [place] [facility] 4.2.7.2.686 Ash as [phone] [facility] 009 [place] 2021-11-09 2021-11-09 Refill [facility] 1.2.840.114 [id number] Univers 00:00:00 00:00:00 Meliton VARNER 350.1.13.10 [place] [phone] S[place] dic[address] 2021-10-28 2021-10-[address] [facility] 1.2.840.114 [id number] Univers 14:40:00 15:34:17 Visit Meliton VARNER [id number] i [place] [phone] [place] dicvt NAL [address] [place] [address] 2021-10-26 2021-10-26 Outpatient R SHELDON [facility] [id number] Univers 14:30:00 13:54:11 [facility] 2021-10-05 2021-10-05 Outpatient R SHELDON [facility] [id number] Q-20 Univers 15:30:00 15:30:00 DELFINO [id number] [facility] 2020-01-20 2020-01-[address] [facility] 1.2.840.114 [id number] 00:00:00 00:00:00 Meliton [place] 350.1.13.10 [place] 4.2.7.2.686 Professio [id number] [address] 2020-01-05 2020-01-[address] [facility] 1.2.840.114 [id number] 00:00:00 00:00:00 Meliton Varner 350.1.13.10 [place] 4.2.7.2.686 Professio [phone] [address] 2019-10-28 2019-10-28 [facility] 1.2.840.114 [id number] 00:00:00 00:00:00 Meliton Varner 350.1.13.10 [place] 4.2.7.2.686 Professio [phone] [address] 2019-10-22 2019-10-22 [facility] 1.2.840.114 [id number] 00:00:00 00:00:00 Nikole Varner 350.1.13.10 [place] 4.2.7.2.686 Professio [phone] [address] 2019-08-20 2019-08-20 [facility] 1.2.840.114 [id number] 00:00:00 00:00:00 Outreach Nikole Varner 350.1.13.10 [place] 4.2.7.2.686 Professio [phone] [address] 2019-07-31 2019-07-31 Telephone [facility] 1.2.840.114 [id number] 00:00:00 00:00:00 Meliton Varner 350.1.13.10 [place] 4.2.7.2.686 Professio [phone] [address] 2019-07-31 2019-07-31 Orders Doctor ANTOINE 1.2.840.114 [id number] 00:00:00 00:00:00 Only Unassigned, COLT 350.1.13.10 [place] [facility] 4.2.7.2.686 [id number] 009 2019-07-27 2019-07-27 Telephone [facility] 1.2.840.114 [id number] 00:00:00 00:00:00 Meliton Varner 350.1.13.10 [place] 4.2.7.2.686 Professio [phone] [address] 2019-07-20 2019-07-20 Orders Doctor [facility] 1.2.840.114 [id number] 00:00:00 00:00:00 Only Unassigned, COLT 350.1.13.10 [place] [facility] 4.2.7.2.686 [id number] 009 2019-07-18 2019-07-18 Refill [facility] 1.2.840.114 [id number] 00:00:00 00:00:00 Meliton Varner 350.1.13.10 [place] 4.2.7.2.686 Professio [phone] [address] 2019-07-18 2019-07-18 Refill [facility] 1.2.840.114 [id number] 00:00:00 00:00:00 Meliton Varner 350.1.13.10 [place] 4.2.7.2.686 Professio [phone] [address] 2019-07-02 2019-07-02 [facility] 1.2.840.114 [id number] 00:00:00 00:00:00 Meliton Varner 350.1.13.10 [place] 4.2.7.2.686 Professio [phone] [address] 2019-06-28 2019-06-28 [facility] 1.2.840.114 [id number] 00:00:00 00:00:00 Meliton Varner 350.1.13.10 [place] 4.2.7.2.686 Professio [phone] [address] 2019-06-22 2019-06-22 Telephone [facility] 1.2.840.114 [id number] 00:00:00 00:00:00 Meliton Varner 350.1.13.10 [place] 4.2.7.2.686 Professio [phone] [address] 2019-06-14 2019-06-[address] [facility] 1.2.840.114 [id number] 07:28:15 08:33:50 Visit Meliton Varner 350.1.13.10 [place] 4.2.7.2.686 [place] [phone] [address] Results This patient has no known results.
[2022-01-09] MEDS ORDERED: HYDROCODONE/APAP 10/325 TAB ONE (12:07)
--- NOTE | 2022-01-09 12:58 | RAD REPORT ---
EXAM DESCRIPTION: RAD - Knee Left 3 View - 01/09/2022 12:41 pm CLINICAL HISTORY: PAIN COMPARISON: No comparisons FINDINGS/IMPRESSION: No acute fracture. No malalignment. Patellofemoral compartment spurring. Small knee effusion.
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
[2022-01-09 13:17] VITALS: TEMP 96.9
[2022-01-09 13:22] VITALS: BP 119/81; O2SAT 99
== END 2022-01-09 13:09 | disposition home or self-care (01) ==
LOC: ER 11:41
DX: M25.562 Pain in left knee (principal); I10 Essential (primary) hypertension
CPT/HCPCS: 99283

== ENCOUNTER 2022-02-26 08:28 | Emergency (ER) | payer OTHER ==
--- OUTSIDE RECORDS SUMMARY | 2022-02-26 08:39 | XMS REPORT | Continuity of Care Document ---
:1950 Author Organization [facility] t Address [address] [place] [address] Care Team Providers Name Role Phone MELITON OLIVER Primary Care Physician Unavailable MELITON OLIVER Attending Clinician Unavailable FAM MEEKS Attending Clinician Unavailable Meliton Oliver MD Attending Clinician Nikole Mera MD Attending Clinician [phone] Doctor Unassigned, [place] Attending Clinician Unavailable Angela SHANNON Attending Clinician Unavailable Angela George Attending Clinician Vaccine, [facility] Attending Clinician Unavailable Delfino Delgado MD Attending Clinician DELFINO DELGADO Attending Clinician Unavailable Didier Viera RN Attending Clinician Unavailable Vinod Ames MD Attending Clinician 2, [facility] Attending Clinician Unavailable ELIAS TODD Attending Clinician Unavailable Aranza Sparks RN Attending Clinician Unavailable Pob, [facility] Main Attending Clinician Unavailable MATHEUS CLEMENTS Attending Clinician Unavailable Elias Todd DO Attending Clinician Beck Murillo MD Attending Clinician [phone] NIKOLE MERA Attending Clinician Unavailable Abundio Foley RN Attending Clinician Unavailable Nurse, [facility] Attending Clinician Unavailable Laila Rehman LMSW Attending Clinician Angela SHANNON Admitting Clinician Unavailable Payers Payer Name Policy Type Policy Number Effective Date Expiration Date Deb [facility] DUAL [id number] 2021 COMP HMO D SNP 00:00:00 [facility] [id number] 2018 PLUS 00:00:00 [place] [id number] 2020 2022 00:00:00 00:00:00 Problems Condition Condition Condition Status Onset Resolution Last Treating Co mments Source Name Details Category Date Date Treatment Clinician Date Effusion Effusion Disease Active Unive rs of left of left 01-28 ity of knee knee 00:00: Medical Branch Arthritis Arthritis Disease Active Uni vers of left of left 01-28 ity of knee knee 00:00: [place] [facility] Obesity Obesity Disease Active 2020-05 Univers (BMI (BMI 2-22 ity of 30-39.9) 30-39.9) 00:00: [place] [facility] Itchy skin Itchy skin Disease Active U nivers 6- ity of 00:00: [place] 00 Medical Branch Allergic Allergic Disease Active Unive rs contact contact 6 [place]y of dermatitis [place]itis [place] due to due to 00 Medical cosmetics cosmetics Bran ch Seasonal Seasonal Disease Active Unive rs allergic allergic 10-21 ity of rhinitis rhinitis 00:00: [place] due to due to 00 Medical other other Branch allergic allergic trigger trigger Osteoarthr Osteoarthr Disease Active U nivers itis itis 6- it[place] of involving involving [place] multiple multiple 00 Medica [place] joints on joints on Bran ch both sides both sides of body of body Dyslipidem Dyslipidem Disease Active 2019-05 U nivers ia ia - ity of 00:00: Medical Branch Vertigo, Vertigo, Disease Active 2019-05 Unive rs aural, aural, 05-04 ity of unspecifie unspecifie 00:00: [place] d [place] 00 Medical laterality laterality Br anch Tinnitus, Tinnitus, Disease Active 2019-05 Uni vers unspecifie unspecifie 1-03 it y of d d 00:00: [place] laterality laterality 00 Me dical Branch Need for Need for Disease Active Unive rs COVID-19 COVID-19 2-13 ity of vaccine vaccine 00:00: [place] 00 Medical Branch Dietary Dietary Disease Active Univers folate folate 2-13 ity of deficiency deficiency 00:00: [place] [facility] Screening Screening Disease Active Uni vers for AAA for AAA 925 ity of (abdominal (abdominal 00:00: [place] aortic aortic 00 Medical aneurysm) aneurysm) Bran ch Chronic Chronic Disease Active Univers pain of pain of 9-18 ity of right hand right hand 00:00: [place] [facility] Bilateral Bilateral Disease Active Uni vers chronic chronic 9-18 ity of knee pain knee pain 00:00[place] [facility] [place] Low Low Disease Active Univers testostero testostero 918 it y of ne in male ne in male 00:00: [place] [facility] Low Low Disease Active Univers vitamin D vitamin D 918 ity of level level 00:00: [place] [facility] Need for Need for Disease Active Unive rs home home 9-18 ity of health health 00:00: [place] care care 00 Medical Branch Weakness Weakness Disease Active Unive rs of both of both 918 ity of lower lower 00:00: [place] extremitie extremitie 00 Me dical s s Branch B12 B12 Disease Active Univers deficiency deficiency 918 it y of 00:00: [place] 00 Medical Branch Need for Need for Disease Active Unive rs pneumococc pneumococc 8-23 it y of al al 00:00: [place] vaccinatio vaccinatio 00 Me dical n n Branch Need for Need for Disease Active Unive rs pneumococc pneumococc 8-23 it y of al al 00:00: [place] vaccinatio vaccinatio 00 Me dical n n Branch Diabetic Diabetic Disease Active Overview: Un greg eye exam eye exam 8 Formattin ity of 00:00: g of this [place] 00 note Medical might be Branch different from the original. Added automatic ally from request for surgery [id number] Obesity, Obesity, Disease Active Unive rs Class III, Class III, 728 it y of BMI BMI 00:00: [place] 40-49.9 40-49.9 00 Medical (morbid (morbid Branch [...] Active Univers ALLERGIE Class ity of S [facility] Social History Social Habit Start Date Stop Date Quantity Comments Source History of Current smoker University of tobacco use [facility] Alcohol intake 2022-02-24 2022-02-24 0 /d [facility] 00:00:00 00:00:00 [facility] Exposure to 2022-02-02 2022-02-12 Not sure [facility] SARS-CoV-2 00:00:00 08:59:00 [facility] (event) Branch Tobacco use and 2022-01-28 2022-01-28 Smokeless tobacco Un iversity of exposure 00:00:00 00:00:00 non-user [facility] Sex Assigned At [birth year] Universit y of 00:00:00 00:00:00 [facility] Smoking Status Start Date Stop Date Source Ex-smoker 2022-01-28 00:00:00 2022-01-28 00:00:00 [facility] [place] [facility] Medications Ordered Filled Start Stop Current Ordering Indication Dosage Frequency Signature Comments Components Source Medication Medication Date Date Medication? Clinician (SIG) Name Name Diclofenac 2021-05 Yes [id number] Apply 4g Univers Sodium 0-25 to ity of (VOLTAREN) 00:00: affected [place] 1 % gel 00 [facility] fluticasone 2021-05 Yes [id number] 1{spray Use 1 Univers propionate 0-25 } [place] in ity o f 50 00:00: each [place] mcg/actuati 00 nostril in Me dical on nasal the Branch spray morning and 1 [place] in the evening. Diclofenac 2021-05 Yes [id number] Apply 4g Univers Sodium 0-25 to ity of (VOLTAREN) 00:00: affected [place] as 1 % gel 00 [facility] fluticasone 2021-05 Yes [id number] 1{spray Use 1 Univers propionate 0-25 } [place] in ity o f 50 00:00: each [place] mcg/actuati 00 nostril in Me dical on nasal the Branch spray morning and 1 [place] in the evening. FLUTICASONE 2021-05 Yes [id number] Use 1 Univers PROPIONATE 0-21 spray(s) ity o f 50 00:00: in each [place] mcg/actuati 00 nostril Medic al on nasal twice Branch spray daily FLUTICASONE 2021-05- No [id number] Use 1 Univers PROPIONATE 0-21 10-25 spray(s) ity of 50 00:00: 00:00 in each [place] mcg/actuati 00 :00 nostril Medic al on nasal twice Branch spray daily FLUTICASONE 2021-05- No [id number] Use 1 Univers PROPIONATE 0-21 10-25 spray(s) ity of 50 00:00: 00:00 in each [place] mcg/actuati 00 :00 nostril Medic al on nasal twice Branch spray daily Tramadol 2021-05 Yes [id number] 100mg Take 1 Univer s 100 mg 0-13 tablet by ity of tablet 00:00: mouth in [place] 00 the Medical morning. Branch Indication s: chronic pain gabapentin 2021-05 Yes [id number] 300mg Take 1 Univers 300 mg 0-13 9105 capsule by ity of capsule 00:00: mouth in [place] 00 the Medical morning Branch and 1 capsule at noon and 1 capsule in the evening. naproxen 2021-05 Yes [id number] 500mg Take 1 Univers (NAPROSYN) 0-13 9105 tablet by ity of 500 mg 00:00: mouth in [place] tablet 00 the Medical morning Branch and 1 tablet in the evening. Take with meals. ergocalcife 2021-05 Yes [id number] Take 1 Univers rol, 0-13 capsule by ity of vitamin d2, 00:00: mouth [place] 1,250 mcg 00 weekly. Medical (50,000 Branch unit) capsule Tramadol 2021-05 Yes [id number] 100mg Take 1 Univer s 100 mg 0-13 tablet by ity of tablet 00:00: mouth in [place] 00 the Medical morning. Branch Indication s: chronic pain gabapentin 2021-05 Yes [id number] 300mg Take 1 Univers 300 mg 0-13 9105 capsule by ity of capsule 00:00: mouth in [place] the Medical morning Branch and 1 capsule at noon and 1 capsule in the evening. naproxen 2021-05 Yes [id number] 500mg Take 1 Univers (NAPROSYN) 0-13 9105 tablet by ity of 500 mg 00:00: mouth in [place] tablet the Medical morning Branch and 1 tablet in the evening. Take with meals. ergocalcife 2021-05 Yes [id number] Take 1 Univers rol, 0-13 capsule by ity of vitamin d2, 00:00: mouth [place] 1,250 mcg 00 weekly. Medical (50,000 Branch unit) capsule Tramadol 2021-05 Yes [id number] 100mg Take 1 Univer s 100 mg 0-13 tablet by ity of tablet 00:00: mouth in [place] 00 the morning. Branch Indication s: chronic pain gabapentin 2021-05 Yes [id number] 300mg Take 1 Univers 300 mg 0-13 9105 capsule by ity of capsule 00:00: mouth in [place] 00 the Medical morning Branch and 1 capsule at noon and 1 capsule in the evening. naproxen 2021-05 Yes [id number] 500mg Take 1 Univers (NAPROSYN) 0-13 9105 tablet by ity of 500 mg 00:00: mouth in [place] tablet 00 the Medical morning Branch and 1 tablet in the evening. Take with meals. ergocalcife 2021-05 Yes [id number] Take 1 Univers rol, 0-13 capsule by ity of vitamin d2, 00:00: mouth [place] 1,250 mcg 00 weekly. Medical (50,000 Branch unit) capsule Tramadol 2021-05 Yes [id number] 100mg Take 1 Univer s 100 mg 0-13 tablet by ity of tablet 00:00: mouth in [place] 00 the Medical morning. Branch Indication s: chronic pain gabapentin 2021-05 Yes [id number] 300mg Take 1 Univers 300 mg 0-13 9105 capsule by ity of capsule 00:00: mouth in [place] 00 the Medical morning Branch and 1 capsule at noon and 1 capsule in the evening. naproxen 2021-05 Yes [id number] 500mg Take 1 Univers (NAPROSYN) 0-13 9105 tablet by ity of 500 mg 00:00: mouth in [place] tablet the Medical morning Branch and 1 tablet in the evening. Take with meals. ergocalcife 2021-05 Yes [id number] Take 1 Univers rol, 0-13 capsule by ity of vitamin d2, 00:00: mouth [place] 1,250 mcg 00 weekly. Medical (50,000 Branch unit) capsule Tramadol 2021-05 Yes [id number] 100mg Take 1 Univer s 100 mg 0-13 tablet by ity of tablet 00:00: mouth in [place] the morning. Branch Indication s: chronic pain gabapentin 2021-05 Yes [id number] 300mg Take 1 Univers 300 mg 0-13 9105 capsule by ity of capsule 00:00: mouth in [place] the Medical morning Branch and 1 capsule at noon and 1 capsule in the evening. naproxen 2021-05 Yes [id number] 500mg Take 1 Univers (NAPROSYN) 0-13 9105 tablet by ity of 500 mg 00:00: mouth in [place] tablet 00 the Medical morning Branch and 1 tablet in the evening. Take with meals. ergocalcife 2021-05 Yes [id number] Take 1 Univers rol, 0-13 capsule by ity of vitamin d2, 00:00: mouth [place] 1,250 mcg 00 weekly. Medical (50,000 Branch unit) capsule Tramadol 2021-05 Yes [id number] 100mg Take 1 Univer s 100 mg 0-13 tablet by ity of tablet 00:00: mouth in [place] 00 the Medical morning. Branch Indication s: chronic pain gabapentin 2021-05 Yes [id number] 300mg Take 1 Univers 300 mg 0-13 9105 capsule by ity of capsule 00:00: mouth in [place] 00 the Medical morning Branch and 1 capsule at noon and 1 capsule in the evening. naproxen 2021-05 Yes [id number] 500mg Take 1 Univers (NAPROSYN) 0-13 9105 tablet by ity of 500 mg 00:00: mouth in [place] tablet 00 the Medical morning Branch and 1 tablet in the evening. Take with meals. ergocalcife 2021-05 Yes [id number] Take 1 Univers rol, 0-13 capsule by ity of vitamin d2, 00:00: mouth [place] 1,250 mcg 00 weekly. Medical (50,000 Branch unit) capsule methylPREDN 2021- No [id number] 40mg Univers ISolone sod 01-28 ity of succ 20:30: 22:12 [place] (SOLU-MEDRO 00 :00 Medical L (PF)) Branch injection 40 mg methylPREDN 2021- No [id number] 40mg 40 mg, Univers ISolone sod 01-28 Intravenou ity of succ 20:30: 22:12 s, ONCE, 1 [place] (SOLU-MEDRO 00 :00 dose, On Medi freddy L (PF)) Ang[place]lica Branch injection 01/28/22 at 40 mg 1530, Routine methylPREDN 2021- No [id number] 40mg Univers ISolone sod 01-28 [id number] ity of succ 20:30: 22:12 [place] (SOLU-MEDRO 00 :00 Medical L (PF)) Branch injection 40 mg methylPREDN 2021- No [id number] 40mg 40 mg, Univers ISolone sod 01-28 Intravenou ity of succ 20:30: 22:12 s, ONCE, 1 [place] (SOLU-MEDRO 00 :00 dose, On Medi freddy L (PF)) Ang[place]a Branch injection 01/28/22 at 40 mg 1530, Routine methylPREDN 2021- No [id number] 40mg Univers ISolone sod 01-28 [id number] ity of succ 20:30: 22:12 [place] (SOLU-MEDRO 00 :00 Medical L (PF)) Branch injection 40 mg methylPREDN 2021- No [id number] 40mg 40 mg, Univers ISolone sod 01-28 [id number] Intravenou ity of succ 20:30: 22:12 s, ONCE, 1 [place] (SOLU-MEDRO 00 :00 dose, On Medi freddy L (PF)) [place] Branch injection 01/28/22 at 40 mg 1530, Routine Lidocaine Yes [id number] Apply to Univers % cream 01-28 area(s) 2 ity of 00:00: (two) [place] 00 times Medical daily as Branch needed for Pain (scale 4-6). Apply 5g to affected areas BID PRN Diclofenac Yes [id number] Apply 4g Univers Sodium 01-28 to ity of (VOLTAREN) 00:00: affected [place] 1 % gel 00 area QID Medical Branch semaglutide Yes [id number] 1mg inject 1 Univers (OZEMPIC) 1 9-29 mg under ity of mg/dose (4 00:00: the skin [place] mg/3 mL) 00 weekly. Medical PnIj Branch Lidocaine Yes [id number] Apply to Univers % cream 01-28 area(s) 2 ity of 00:00: (two) [place] 00 times Medical daily as Branch needed for Pain (scale 4-6). Apply 5g to affected areas BID PRN Diclofenac 2021-0 Yes [id number] Apply 4g Univers Sodium 01-28 to ity of (VOLTAREN) 00:00: affected [place] 1 % gel 00 area QID Medical Branch semaglutide 0 Yes [id number] 1mg inject 1 Univers (OZEMPIC) 1 9-29 mg under ity of mg/dose (4 00:00: the skin [place] mg/3 mL) 00 weekly. Medical PnIj Branch Lidocaine 5 Yes [id number] Apply to Univers % cream 01-28 area(s) 2 ity of 00:00: (two) [place] 00 times Medical daily as Branch needed for Pain (scale 4-6). Apply 5g to affected areas BID PRN Diclofenac 2021-0 Yes [id number] Apply 4g Univers Sodium -29 to ity of (VOLTAREN) 00:00: affected [place] 1 % gel 00 area QID Medical Branch semaglutide 2021-0 Yes [id number] 1mg inject 1 Univers (OZEMPIC) 1 9-29 mg under ity of mg/dose (4 00:00: the skin [place] mg/3 mL) 00 weekly. Medical PnIj Branch Lidocaine 5 2021-0 Yes [id number] Apply to Univers % cream 9-29 area(s) 2 ity of 00:00: (two) [place] 00 times Medical daily as Branch needed for Pain (scale 4-6). Apply 5g to affected areas BID PRN Diclofenac 2021-0 Yes [id number] Apply 4g Univers Sodium 9-29 to ity of (VOLTAREN) 00:00: affected [place] 1 % gel 00 area QID Medical Branch semaglutide 0 Yes [id number] 1mg inject 1 Univers (OZEMPIC) 1 9-29 mg under ity of mg/dose (4 00:00: the skin [place] mg/3 mL) 00 weekly. Medical PnIj Branch Lidocaine 5 2021-0 Yes [id number] Apply to Univers % cream 9-29 area(s) 2 ity of 00:00: (two) [place] 00 times Medical daily as Branch needed for Pain (scale 4-6). Apply 5g to affected areas BID PRN Diclofenac 2021-0 Yes [id number] Apply 4g Univers Sodium 9-29 to ity of (VOLTAREN) 00:00: affected [place] 1 % gel 00 area QID Medical Branch semaglutide 0 Yes [id number] 1mg inject 1 Univers (OZEMPIC) 1 9-29 mg under ity of mg/dose (4 00:00: the skin [place] mg/3 mL) 00 weekly. Medical PnIj Branch Lidocaine 5 2021-0 Yes [id number] Apply to Univers % cream 9-29 area(s) 2 ity of 00:00: (two) [place] 00 times Medical daily as Branch needed for Pain (scale 4-6). Apply 5g to affected areas BID PRN Diclofenac 2-0 Yes [id number] Apply 4g Univers Sodium 9-29 to ity of (VOLTAREN) 00:00: affected [place] 1 % gel 00 area QID Medical Branch semaglutide 2022-0 Yes [id number] 1mg inject 1 Univers (OZEMPIC) 1 9-29 mg under ity of mg/dose (4 00:00: the skin [place] mg/3 mL) 00 weekly. Medical PnIj Branch Lidocaine 5 2021-0 Yes [id number] Apply to Univers % cream 9-29 area(s) 2 ity of 00:00: (two) [place] 00 times Medical daily as Branch needed for Pain (scale 4-6). Apply 5g to affected areas BID PRN Diclofenac 2021-0 Yes [id number] Apply 4g Univers Sodium 9-29 to ity of (VOLTAREN) 00:00: affected [place] 1 % gel 00 area QID Medical Branch semaglutide 0 Yes [id number] 1mg inject 1 Univers (OZEMPIC) 1 9-29 mg under ity of mg/dose (4 00:00: the skin [place] mg/3 mL) 00 weekly. Medical PnIj Branch Lidocaine 5 0 Yes [id number] Apply to Univers % cream 9-29 area(s) 2 ity of 00:00: (two) [place] 00 times Medical daily as Branch needed for Pain (scale 4-6). Apply 5g to affected areas BID PRN Diclofenac 2021-0 Yes [id number] Apply 4g Univers Sodium 9-29 to ity of (VOLTAREN) 00:00: affected [place] 1 % gel 00 area QID Medical Branch semaglutide 2021-0 Yes [id number] 1mg inject 1 Univers (OZEMPIC) 1 9-29 mg under ity of mg/dose (4 00:00: the skin [place] mg/3 mL) 00 weekly. Medical PnIj Branch Lidocaine 2021-0 Yes [id number] Apply to Univers % cream 9-29 area(s) 2 ity of 00:00: (two) [place] 00 times Medical daily as Branch needed for Pain (scale 4-6). Apply 5g to affected areas BID PRN semaglutide 2021-0 Yes [id number] 1mg inject 1 Univers (OZEMPIC) 1 9-29 mg under ity of mg/dose (4 00:00: the skin [place] mg/3 mL) 00 weekly. Medical PnIj Branch Lidocaine 5 2021-0 Yes [id number] Apply to Univers % cream 9-29 area(s) 2 ity of 00:00: (two) [place] 00 times Medical daily as Branch needed for Pain (scale 4-6). Apply 5g to affected areas BID PRN semaglutide Yes [id number] 1mg inject 1 Univers (OZEMPIC) 1 9-29 mg under ity of mg/dose (4 00:00: the skin [place] mg/3 mL) 00 weekly. Medical PnIj Branch semaglutide 2021- Yes [id number] .5mg inject 0.5 Univers (OZEMPIC) 9-29 10-30 mg under ity o f 0.25 mg or 00:00: 04:59 the skin [place] 0.5 mg(2 00 :00 weekly for Medic al mg/1.5 mL) 30 days. [facility] PnIj Direction: Inject 0.25mg qWeek x 4 Weeks; then Inject 0.5mg qWeek x 4Weeks; then inject 1mg qWeek. semaglutide 2021- Yes [id number] .5mg inject 0.5 Univers (OZEMPIC) 9-29 10-30 mg under ity o f 0.25 mg or 00:00: 04:59 the skin [place] 0.5 mg(2 00 :00 weekly for Medic al mg/1.5 mL) 30 days. [facility] PnIj Direction: Inject 0.25mg qWeek x 4 Weeks; then Inject 0.5mg qWeek x 4Weeks; then inject 1mg qWeek. semaglutide 2021- Yes [id number] .5mg inject 0.5 Univers (OZEMPIC) 9-29 10-30 mg under ity o f 0.25 mg or 00:00: 04:59 the skin [place] 0.5 mg(2 00 :00 weekly for Medic al mg/1.5 mL) 30 days. Bran h PnIj Direction: Inject 0.25mg qWeek x 4 Weeks; then Inject 0.5mg qWeek x 4Weeks; then inject 1mg qWeek. semaglutide 2021- Yes [id number] .5mg inject 0.5 Univers (OZEMPIC) 9-29 10-30 mg under ity o f 0.25 mg or 00:00: 04:59 the skin [place] 0.5 mg(2 00 :00 weekly for Medic al mg/1.5 mL) 30 days. [facility] h PnIj Direction: Inject 0.25mg qWeek x 4 Weeks; then Inject 0.5mg qWeek x 4Weeks; then inject 1mg qWeek. semaglutide 2021- Yes [id number] .5mg inject 0.5 Univers (OZEMPIC) 9-29 10-30 mg under ity o f 0.25 mg or 00:00: 04:59 the skin [place] 0.5 mg(2 00 :00 weekly for Medic al mg/1.5 mL) 30 days. [facility] PnIj Direction: Inject 0.25mg qWeek x 4 Weeks; then Inject 0.5mg qWeek x 4Weeks; then inject 1mg qWeek. semaglutide 2021- Yes [id number] .[id number] inject 0.5 Univers (OZEMPIC) 9-29 10-30 mg under ity o f 0.25 mg or 00:00: 04:59 the skin [place] 0.5 mg(2 00 :00 weekly for Medic al mg/1.5 mL) 30 days. [facility] PnIj Direction: Inject 0.25mg qWeek x 4 Weeks; then Inject 0.5mg qWeek x 4Weeks; then inject 1mg qWeek. semaglutide 2021- Yes [id number] .[id number] inject 0.5 Univers (OZEMPIC) 9-29 10-30 mg under ity o f 0.25 mg or 00:00: 04:59 the skin [place] 0.5 mg(2 00 :00 weekly for Medic al mg/1.5 mL) 30 days. [facility] h PnIj Direction: Inject 0.25mg qWeek x 4 Weeks; then Inject 0.5mg qWeek x 4Weeks; then inject 1mg qWeek. semaglutide 2021- Yes [id number] .5mg inject 0.5 Univers (OZEMPIC) 9-29 10-30 mg under ity o f 0.25 mg or 00:00: 04:59 the skin [place] 0.5 mg(2 00 :00 weekly for Medic al mg/1.5 mL) 30 days. [facility] PnIj Direction: Inject 0.25mg qWeek x 4 Weeks; then Inject 0.5mg qWeek x 4Weeks; then inject 1mg qWeek. semaglutide 2021- Yes [id number] .5mg inject 0.5 Univers (OZEMPIC) 9-29 10-30 mg under ity o f 0.25 mg or 00:00: 04:59 the skin [place] 0.5 mg(2 00 :00 weekly for Medic al mg/1.5 mL) 30 days. [facility] PnIj Direction: Inject 0.25mg qWeek x 4 Weeks; then Inject 0.5mg qWeek x 4Weeks; then inject 1mg qWeek. semaglutide 2021- Yes [id number] .5mg inject 0.5 Univers (OZEMPIC) 9-29 10-30 mg under ity o f 0.25 mg or 00:00: 04:59 the skin [place] 0.5 mg(2 00 :00 weekly for Medic al mg/1.5 mL) 30 days. [facility] PnIj Direction: Inject 0.25mg qWeek x 4 Weeks; then Inject 0.5mg qWeek x 4Weeks; then inject 1mg qWeek. Diclofenac 2021- No [id number] Apply 4g Univers Sodium 9-29 10-25 to ity of (VOLTAREN) 00:00: 00:00 affected [place] 1 % gel 00 :00 [facility] Diclofenac 2021- No [id number] Apply 4g Univers Sodium 9-29 10-25 to ity of (VOLTAREN) 00:00: 00:00 affected [place] 1 % gel 00 :00 [facility] FLUTICASONE Yes [id number] Use 1 Univers PROPIONATE 9-26 spray(s) ity o f 50 00:00: in each [place] mcg/actuati 00 nostril Medic al on nasal twice Branch spray daily FLUTICASONE Yes [id number] Use 1 Univers PROPIONATE 9-26 spray(s) ity o f 50 00:00: in each [place] mcg/actuati 00 nostril Medic al on nasal twice Branch spray daily FLUTICASONE 0 Yes [id number] Use 1 Univers PROPIONATE 9-26 spray(s) ity o f 50 00:00: in each [place] mcg/actuati 00 nostril Medic al on nasal twice Branch spray daily FLUTICASONE 0 Yes [id number] Use 1 Univers PROPIONATE 9-26 spray(s) ity o f 50 00:00: in each [place] mcg/actuati 00 nostril Medic al on nasal twice Branch spray daily FLUTICASONE 0 Yes [id number] Use 1 Univers PROPIONATE 9-26 spray(s) ity o f 50 00:00: in each [place] mcg/actuati 00 nostril Medic al on nasal twice Branch spray daily FLUTICASONE 0 Yes [id number] Use 1 Univers PROPIONATE 9-26 spray(s) ity o f 50 00:00: in each [place] mcg/actuati 00 nostril Medic al on nasal twice Branch spray daily FLUTICASONE 0 Yes [id number] Use 1 Univers PROPIONATE 9-26 spray(s) ity o f 50 00:00: in each [place] mcg/actuati 00 nostril Medic al on nasal twice Branch spray daily FLUTICASONE 0 Yes [id number] Use 1 Univers PROPIONATE 9-26 spray(s) ity o f 50 00:00: in each [place] mcg/actuati 00 nostril Medic al on nasal twice Branch spray daily FLUTICASONE 0 Yes [id number] Use 1 Univers PROPIONATE 9-26 spray(s) ity o f 50 00:00: in each [place] mcg/actuati 00 nostril Medic al on nasal twice Branch spray daily FLUTICASONE 2021-0 2021- No [id number] Use 1 Univers PROPIONATE 9-26 10-25 spray(s) ity of 50 00:00: 00:00 in each [place] mcg/actuati 00 :00 nostril Medic al on nasal twice Branch spray daily FLUTICASONE 2021-0 2021- No [id number] Use 1 Univers PROPIONATE 9-26 10-25 spray(s) ity of 50 00:00: 00:00 in each [place] mcg/actuati 00 :00 nostril Medic al on nasal twice Branch spray daily naproxen 2021- No 500mg 500 mg, Univ ers (NAPROSYN) 12-25 Oral, ity of tablet 500 20:45: 19:45 ONCE, 1 [place] mg 00 :00 dose, On Medical Fri Branch 12/25/21 at 1545, Routine naproxen 2021-0 Yes [id number] 500mg Take 1 Univers (NAPROSYN) 12-25 9105 tablet by ity of 500 mg 00:00: mouth in [place] tablet 00 the and 1 tablet in the evening. Take with meals. naproxen 2021-0 Yes [id number] 500mg Take 1 Univers (NAPROSYN) 12-25 9105 tablet by ity of 500 mg 00:00: mouth in [place] tablet the and 1 tablet in the evening. Take with meals. naproxen 2021-0 Yes [id number] 500mg Take 1 Univers (NAPROSYN) 12-25 9105 tablet by ity of 500 mg 00:00: mouth in [place] tablet 00 the and 1 tablet in the evening. Take with meals. naproxen 2021-0 Yes [id number] 500mg Take 1 Univers (NAPROSYN) 12-25 9105 tablet by ity of 500 mg 00:00: mouth in [place] tablet the and 1 tablet in the evening. Take with meals. naproxen 2021-0 Yes [id number] 500mg Take 1 [facility] (NAPROSYN) 12-25 9105 tablet by ity of 500 mg 00:00: mouth in [place] tablet the and 1 tablet in the evening. Take with meals. naproxen 2021-0 Yes [id number] 500mg Take 1 [facility] (NAPROSYN) 12-25 9105 tablet by ity of 500 mg 00:00: mouth in [place] tablet 00 the and 1 tablet in the evening. Take with meals. naproxen 2021-0 2021- No [id number] 500mg Take 1 [facility] (NAPROSYN) 12-25 10-13 9105 tablet by ity of 500 mg 00:00: 00:00 mouth in [place] tablet 00 :00 the and 1 tablet in the evening. Take with meals. naproxen 2021- No [id number] 500mg Take 1 [facility] (NAPROSYN) 8 10- 9105 tablet by ity of 500 mg 00:00: 00:00 mouth in [place] tablet 00 :00 the Medical morning Branch and 1 tablet in the evening. Take with meals. FLUTICASONE Yes [id number] Use 1 [facility] PROPIONATE 7-14 spray(s) ity o f 50 00:00: in each [place] mcg/actuati nostril Medic al on nasal twice Branch spray daily FLUTICASONE Yes [id number] Use 1 [facility] PROPIONATE 7-14 spray(s) ity o f 50 00:00: in each [place] mcg/actuati nostril Medic al on nasal twice Branch spray daily FLUTICASONE Yes [id number] Use 1 [facility] PROPIONATE 7-14 spray(s) ity o f 50 00:00: in each [place] mcg/actuati nostril Medic al on nasal twice Branch spray daily FLUTICASONE Yes [id number] Use 1 [facility] PROPIONATE 7-14 spray(s) ity o f 50 00:00: in each [place] mcg/actuati nostril Medic al on nasal twice Branch spray daily FLUTICASONE Yes [id number] Use 1 [facility] PROPIONATE 7-14 spray(s) ity o f 50 00:00: in each [place] mcg/actuati nostril Medic al on nasal twice Branch spray daily FLUTICASONE Yes [id number] Use 1 [facility] PROPIONATE 7-14 spray(s) ity o f 50 00:00: in each [place] mcg/actuati 00 nostril Medic al on nasal twice Branch spray daily FLUTICASONE Yes [id number] Use 1 [facility] PROPIONATE 7-14 spray(s) ity o f 50 00:00: in each [place] mcg/actuati 00 nostril Medic al on nasal twice Branch spray daily FLUTICASONE Yes [id number] Use 1 [facility] PROPIONATE 7-14 spray(s) ity o f 50 00:00: in each [place] mcg/actuati nostril Medic al on nasal twice Branch spray daily FLUTICASONE Yes [id number] Use 1 [facility] PROPIONATE 7-14 spray(s) ity o f 50 00:00: in each [place] mcg/actuati 00 nostril Medic al on nasal twice Branch spray daily FLUTICASONE Yes [id number] Use 1 [facility] PROPIONATE 7-14 spray(s) ity o f 50 00:00: in each [place] mcg/actuati 00 nostril Medic al on nasal twice Branch spray daily FLUTICASONE Yes [id number] Use 1 [facility] PROPIONATE 7-14 spray(s) ity o f 50 00:00: in each [place] mcg/actuati 00 nostril Medic al on nasal twice Branch spray daily FLUTICASONE Yes [id number] Use 1 [facility] PROPIONATE 7-14 spray(s) ity o f 50 00:00: in each [place] mcg/actuati 00 nostril Medic al on nasal twice Branch spray daily FLUTICASONE Yes [id number] Use 1 [facility] PROPIONATE 7-14 spray(s) ity o f 50 00:00: in each [place] mcg/actuati 00 nostril Medic al on nasal twice Branch spray daily FLUTICASONE Yes [id number] Use 1 [facility] PROPIONATE 7-14 spray(s) ity o f 50 00:00: in each [place] mcg/actuati 00 nostril Medic al on nasal twice Branch spray daily FLUTICASONE Yes [id number] Use 1 [facility] PROPIONATE 7-14 spray(s) ity o f 50 00:00: in each [place] mcg/actuati 00 nostril Medic al on nasal twice Branch spray daily FLUTICASONE 202- No [id number] Use 1 [facility] PROPIONATE 7-14 10-25 spray(s) ity of 50 00:00: 00:00 in each [place] mcg/actuati 00 :00 nostril Medic al on nasal twice Branch spray daily FLUTICASONE 2021- No [id number] Use 1 [facility] PROPIONATE 7-14 10-25 spray(s) ity of 50 00:00: 00:00 in each [place] mcg/actuati 00 :00 nostril Medic al on nasal twice Branch spray daily FLUTICASONE 2021- No [id number] Use 1 [facility] PROPIONATE 7-14 09-26 spray(s) ity of 50 00:00: 00:00 in each [place] mcg/actuati 00 :00 nostril Medic al on nasal twice Branch spray daily albuterol 0 Yes [id number] INHALE 2 [facility] (PROAIR 6-29 PUFFS BY ity of HFA) 90 00:00: MOUTH [place] mcg/actuati 00 EVERY 4 Medic al on inhaler HOURS Branc h NEEDED FOR WHEEZING FOR SHORTNESS OF BREATH albuterol 0 Yes [id number] INHALE 2 [facility] (PROAIR 6-29 PUFFS BY ity of HFA) 90 00:00: MOUTH [place] mcg/actuati 00 EVERY 4 Medic al on inhaler HOURS Branc h NEEDED FOR WHEEZING FOR SHORTNESS OF BREATH albuterol 0 Yes [id number] INHALE 2 [facility] (PROAIR 6-29 PUFFS BY ity of HFA) 90 00:00: MOUTH [place] mcg/actuati 00 EVERY 4 Medic al on inhaler HOURS Branc h NEEDED FOR WHEEZING FOR SHORTNESS OF BREATH albuterol 0 Yes [id number] INHALE 2 [facility] (PROAIR 6-29 PUFFS BY ity of HFA) 90 00:00: MOUTH [place] mcg/actuati 00 EVERY 4 Medic al on inhaler HOURS Branc h NEEDED FOR WHEEZING FOR SHORTNESS OF BREATH albuterol 0 Yes [id number] INHALE 2 [facility] (PROAIR 6-29 PUFFS BY ity of HFA) 90 00:00: MOUTH [place] mcg/actuati 00 EVERY 4 Medic al on inhaler HOURS Branc h NEEDED FOR WHEEZING FOR SHORTNESS OF BREATH albuterol 0 Yes [id number] INHALE 2 [facility] (PROAIR 6-29 PUFFS BY ity of HFA) 90 00:00: MOUTH [place] mcg/actuati 00 EVERY 4 Medic al on inhaler HOURS Branc h NEEDED FOR WHEEZING FOR SHORTNESS OF BREATH albuterol 2021-0 Yes [id number] INHALE 2 [facility] (PROAIR 6-29 PUFFS BY ity of HFA) 90 00:00: MOUTH [place] mcg/actuati 00 EVERY 4 Medic al on inhaler HOURS Branc h NEEDED FOR WHEEZING FOR SHORTNESS OF BREATH albuterol 2021-0 Yes [id number] INHALE 2 [facility] (PROAIR 6-29 PUFFS BY ity of HFA) 90 00:00: MOUTH [place] mcg/actuati 00 EVERY 4 Medic al on inhaler HOURS Branc h NEEDED FOR WHEEZING FOR SHORTNESS OF BREATH albuterol 0 Yes [id number] INHALE 2 [facility] (PROAIR 6-29 PUFFS BY ity of HFA) 90 00:00: MOUTH [place] mcg/actuati 00 EVERY 4 Medic al on inhaler HOURS Branc h NEEDED FOR WHEEZING FOR SHORTNESS OF BREATH albuterol 0 Yes [id number] INHALE 2 [facility] (PROAIR 6-29 PUFFS BY ity of HFA) 90 00:00: MOUTH [place] mcg/actuati 00 EVERY 4 Medic al on inhaler HOURS Branc h NEEDED FOR WHEEZING FOR SHORTNESS OF BREATH albuterol 0 Yes [id number] INHALE 2 [facility] (PROAIR 6-29 PUFFS BY ity of HFA) 90 00:00: MOUTH [place] mcg/actuati 00 EVERY 4 Medic al on inhaler HOURS Branc h NEEDED FOR WHEEZING FOR SHORTNESS OF BREATH albuterol 2021-0 Yes [id number] INHALE 2 [facility] (PROAIR 6-29 PUFFS BY ity of HFA) 90 00:00: MOUTH [place] mcg/actuati 00 EVERY 4 Medic al on inhaler HOURS Branc h NEEDED FOR WHEEZING FOR SHORTNESS OF BREATH albuterol 2021-0 Yes [id number] INHALE 2 [facility] (PROAIR 6-29 PUFFS BY ity of HFA) 90 00:00: MOUTH [place] mcg/actuati 00 EVERY 4 Medic al on inhaler HOURS Branc h NEEDED FOR WHEEZING FOR SHORTNESS OF BREATH albuterol 2021-0 Yes [id number] INHALE 2 [facility] (PROAIR 6-29 PUFFS BY ity of HFA) 90 00:00: MOUTH [place] mcg/actuati 00 EVERY 4 Medic al on inhaler HOURS Branc h NEEDED FOR WHEEZING FOR SHORTNESS OF BREATH albuterol 2021-0 Yes [id number] INHALE 2 [facility] (PROAIR 6-29 PUFFS BY ity of HFA) 90 00:00: MOUTH [place] mcg/actuati 00 EVERY 4 Medic al on inhaler HOURS Branc h NEEDED FOR WHEEZING FOR SHORTNESS OF BREATH PROAIR HFA 2021-0 2- No INHALE 2 [facility] greg 90 6-29 06-29 PUFFS BY ity of mcg/actuati 00:00: 00:00 MOUTH [place] inhaler 00 :00 EVERY 4 Medica l HOURS Branch NEEDED FOR WHEEZING FOR SHORTNESS OF BREATH FLUTICASONE Yes [id number] Use 1 [facility] PROPIONATE 5-24 spray(s) ity o f 50 00:00: in each [place] mcg/actuati 00 nostril Medic al on nasal twice Branch spray daily FLUTICASONE 2021- No [id number] Use 1 [facility] PROPIONATE 5-24 07-14 spray(s) ity of 50 00:00: 00:00 in each [place] mcg/actuati 00 :00 nostril Medic al on nasal twice Branch spray daily Diclofenac Yes [id number] APPLY 2-5 [facility] Sodium 1 % 3-25 GRAMS ity of gel 00:00: TOPICALLY [place] 00 TO AREA(S) Medical TWICE A Branch DAY Diclofenac Yes [id number] APPLY 2-5 [facility] Sodium 1 % 3-25 GRAMS ity of gel 00:00: TOPICALLY [place] 00 TO AREA(S) Medical TWICE A Branch DAY Diclofenac Yes [id number] APPLY 2-5 [facility] Sodium 1 % 3-25 GRAMS ity of gel 00:00: TOPICALLY [place] 00 TO AREA(S) Medical TWICE A Branch DAY Diclofenac Yes [id number] APPLY 2-5 [facility] Sodium 1 % 3-25 GRAMS ity of gel 00:00: TOPICALLY [place] 00 TO AREA(S) Medical TWICE A Branch DAY Diclofenac Yes [id number] APPLY 2-5 [facility] Sodium 1 % 3-25 GRAMS ity of gel 00:00: TOPICALLY [place] 00 TO AREA(S) Medical TWICE A Branch DAY Diclofenac 2021- No [id number] APPLY 2-5 [facility] Sodium 1 % 3-25 09-29 GRAMS ity of gel 00:00: 00:00 TOPICALLY [place] 00 :00 TO AREA(S) Medical TWICE A Branch DAY Diclofenac 2021- No [id number] APPLY 2-5 [facility] Sodium 1 % 3-25 09-29 GRAMS ity of gel 00:00: 00:00 TOPICALLY [place] 00 :00 TO AREA(S) Medical TWICE A Branch DAY Diclofenac 2021- No [id number] APPLY 2-5 [facility] Sodium 1 % 3-25 09-29 GRAMS ity of gel 00:00: 00:00 TOPICALLY [place] 00 :00 TO AREA(S) Medical TWICE A DAY PIOGLITAZON Yes [id number] Take 1 [facility] E 15 mg 1-06 tablet by ity of tablet 00:00: mouth once [facility] Branch PIOGLITAZON Yes [id number] Take 1 [facility] E 15 mg 1-06 tablet by ity of tablet 00:00: mouth once [facility] Branch PIOGLITAZON Yes [id number] Take 1 [facility] E 15 mg 1-06 tablet by ity of tablet 00:00: mouth once [facility] Branch PIOGLITAZON Yes [id number] Take 1 [facility] E 15 mg 1-06 tablet by ity of tablet 00:00: mouth once [facility] Branch PIOGLITAZON Yes [id number] Take 1 [facility] E 15 mg 1-06 tablet by ity of tablet 00:00: mouth once [facility] Branch PIOGLITAZON Yes [id number] Take 1 [facility] E 15 mg 1-06 tablet by ity of tablet 00:00: mouth once [facility] Branch PIOGLITAZON Yes [id number] Take 1 [facility] E 15 mg 1-06 tablet by ity of tablet 00:00: mouth once [facility] Branch PIOGLITAZON Yes [id number] Take 1 [facility] E 15 mg 1-06 tablet by ity of tablet 00:00: mouth once [facility] Branch PIOGLITAZON Yes [id number] Take 1 [facility] E 15 mg 1-06 tablet by ity of tablet 00:00: mouth once [facility] Branch PIOGLITAZON Yes [id number] Take 1 [facility] E 15 mg 1-06 tablet by ity of tablet 00:00: mouth once [facility] Branch PIOGLITAZON Yes [id number] Take 1 [facility] E 15 mg 1-06 tablet by ity of tablet 00:00: mouth once [facility] Branch PIOGLITAZON Yes [id number] Take 1 [facility] E 15 mg 1-06 tablet by ity of tablet 00:00: mouth once [place] 00 daily Medical Branch PIOGLITAZON Yes [id number] Take 1 [facility] E 15 mg 1-06 tablet by ity of tablet 00:00: mouth once [place] 00 daily Medical Branch PIOGLITAZON Yes [id number] Take 1 [facility] E 15 mg 1-06 tablet by ity of tablet 00:00: mouth once [place] 00 daily Medical Branch PIOGLITAZON Yes [id number] Take 1 [facility] E 15 mg 1-06 tablet by ity of tablet 00:00: mouth once [place] 00 daily Medical Branch ergocalcife 2020-05 Yes [id number] Take 1 [facility] rol, 2-22 capsule by ity of vitamin d2, 00:00: mouth [place] 1,250 mcg 00 weekly. Medical (50,000 Branch unit) capsule B Complex 2020-05 Yes [id number] 1{tbl} Take 1 [facility] Vitamins 2-22 tablet by ity of (B-COMPLEX) 00:00: mouth [place] tablet 00 daily. Medical Branch atorvastati 2020-05 Yes [id number] 10mg Take 1 [facility] n 10 mg 2-22 tablet by ity of tablet 00:00: mouth at [place] 00 bedtime. Medical Branch metFORMIN 2020-05 Yes [id number] 500mg Take 1 [facility] 500 mg 2-22 tablet by ity of tablet 00:00: mouth 2 [place] 00 (two) Medical times Branch daily with meals. lisinopriL 2020-05 Yes [id number] 20mg Take 1 U nivers 20 mg 2-22 tablet by ity of tablet 00:00: mouth [place] 00 daily. Medical Branch furosemide 2020-05 Yes [id number] 20mg Take 1 U nivers 20 mg 2-22 tablet by ity of tablet 00:00: mouth [place] 00 daily. Medical Branch aspirin 2020-05 Yes [id number] 81mg Take 1 [facility] ers (ADULT LOW 2-22 tablet by ity of DOSE 00:00: mouth [place] ASPIRIN) 81 00 daily. Medica l mg EC Branch tablet lancets 2020-05 Yes [id number] USE Uni vers (ONETOUCH 2-22 DIRECTED ity of DELICA PLUS 00:00: TWICE [place] LANCET) 33 00 DAILY Medical gauge Misc Branch lancets-blo 2020-05 Yes [id number] 1{each} 1 Each 2 [facility] od glucose 2-22 (two) ity of strips 30 00:00: times [place] gauge Cmpk 00 daily. DX Medi freddy E11.9 Branch (Brand upon insurance approval) ergocalcife 2020-05 Yes [id number] Take 1 [facility] rol, 2-22 capsule by ity of vitamin d2, 00:00: mouth [place] 1,250 mcg 00 weekly. Medical (50,000 Branch unit) capsule B Complex 2020-05 Yes [id number] 1{tbl} Take 1 [facility] Vitamins 2-22 tablet by ity of (B-COMPLEX) 00:00: mouth [place] tablet 00 daily. Medical Branch atorvastati 2020-05 Yes [id number] 10mg Take 1 [facility] n 10 mg 2-22 tablet by ity of tablet 00:00: mouth at [place] 00 bedtime. Medical Branch metFORMIN 2020-05 Yes [id number] 500mg Take 1 [facility] 500 mg 2-22 tablet by ity of tablet 00:00: mouth 2 [place] 00 (two) Medical times Branch daily with meals. lisinopriL 2020-05 Yes [id number] 20mg Take 1 U nivers 20 mg 2-22 tablet by ity of tablet 00:00: mouth [place] 00 daily. Medical Branch furosemide 2020-05 Yes [id number] 20mg Take 1 U nivers 20 mg 2-22 tablet by ity of tablet 00:00: mouth [place] 00 daily. Medical Branch aspirin 2020-05 Yes [id number] 81mg Take 1 [facility] ers (ADULT LOW 2-22 tablet by ity of DOSE 00:00: mouth [place] ASPIRIN) 81 00 daily. Medica l mg EC Branch tablet lancets 2020-05 Yes [id number] USE Uni vers (ONETOUCH 2-22 DIRECTED ity of DELICA PLUS 00:00: TWICE [place] LANCET) 33 00 DAILY Medical gauge Misc Branch lancets-blo 2020-05 Yes [id number] 1{each} 1 Each 2 [facility] od glucose 2-22 (two) ity of strips 30 00:00: times [place] gauge Cmpk 00 daily. DX Medi freddy E11.9 Branch (Brand upon insurance approval) ergocalcife 2020-05 Yes [id number] Take 1 [facility] rol, 2-22 capsule by ity of vitamin d2, 00:00: mouth [place] 1,250 mcg 00 weekly. Medical (50,000 Branch unit) capsule B Complex 2020-05 Yes [id number] 1{tbl} Take 1 [facility] Vitamins 2-22 tablet by ity of (B-COMPLEX) 00:00: mouth [place] tablet 00 daily. Medical Branch atorvastati 2020-05 Yes [id number] 10mg Take 1 [facility] n 10 mg 2-22 tablet by ity of tablet 00:00: mouth at [place] 00 bedtime. Medical Branch metFORMIN 2020-05 Yes [id number] 500mg Take 1 [facility] 500 mg 2-22 tablet by ity of tablet 00:00: mouth 2 [place] 00 (two) Medical times Branch daily with meals. lisinopriL 2020-05 Yes [id number] 20mg Take 1 U nivers 20 mg 2-22 tablet by ity of tablet 00:00: mouth [place] 00 daily. Medical Branch furosemide 2020-05 Yes [id number] 20mg Take 1 U nivers 20 mg 2-22 tablet by ity of tablet 00:00: mouth [place] 00 daily. Medical Branch aspirin 2020-05 Yes [id number] 81mg Take 1 [facility] ers (ADULT LOW 2-22 tablet by ity of DOSE 00:00: mouth [place] ASPIRIN) 81 00 daily. Medica l mg EC Branch tablet lancets 2020-05 Yes [id number] USE Uni vers (ONETOUCH 2-22 DIRECTED ity of DELICA PLUS 00:00: TWICE [place] LANCET) 33 00 DAILY Medical [facility] Branch lancets-blo 2020-05 Yes [id number] 1{each} 1 Each 2 [facility] od glucose 2-22 (two) ity of strips 30 00:00: times [facility] Cmpk 00 daily. DX Medi freddy E11.9 Branch (Brand upon insurance approval) ergocalcife 2020-05 Yes [id number] Take 1 [facility] rol, 2-22 capsule by ity of vitamin d2, 00:00: mouth [place] 1,250 mcg 00 weekly. Medical (50,000 Branch unit) capsule B Complex 2020-05 Yes [id number] 1{tbl} Take 1 [facility] Vitamins 2-22 tablet by ity of (B-COMPLEX) 00:00: mouth [place] tablet 00 daily. Medical Branch atorvastati 2020-05 Yes [id number] 10mg Take 1 [facility] n 10 mg 2-22 tablet by ity of tablet 00:00: mouth at [place] 00 bedtime. Medical Branch metFORMIN 2020-05 Yes [id number] 500mg Take 1 [facility] 500 mg 2-22 tablet by ity of tablet 00:00: mouth 2 [place] 00 (two) Medical times Branch daily with meals. lisinopriL 2020-05 Yes [id number] 20mg Take 1 U nivers 20 mg 2-22 tablet by ity of tablet 00:00: mouth [place] 00 daily. Medical Branch furosemide 2020-05 Yes [id number] 20mg Take 1 U nivers 20 mg 2-22 tablet by ity of tablet 00:00: mouth [place] 00 daily. Medical Branch aspirin 2020-05 Yes [id number] 81mg Take 1 [facility] ers (ADULT LOW 2-22 tablet by ity of DOSE 00:00: mouth [place] ASPIRIN) 81 00 daily. Medica l mg EC Branch tablet lancets 2020-05 Yes [id number] USE Uni vers (ONETOUCH 2-22 DIRECTED ity of DELICA PLUS 00:00: TWICE [place] LANCET) 33 00 DAILY Medical gauge Misc Branch lancets-blo 2020-05 Yes [id number] 1{each} 1 Each 2 [facility] od glucose 2-22 (two) ity of strips 30 00:00: times [place] gauge Cmpk 00 daily. DX Medi freddy E11.9 Branch (Brand upon insurance approval) ergocalcife 2020-05 Yes [id number] Take 1 [facility] rol, 2-22 capsule by ity of vitamin d2, 00:00: mouth [place] 1,250 mcg 00 weekly. Medical (50,000 Branch unit) capsule B Complex 2020-05 Yes [id number] 1{tbl} Take 1 [facility] Vitamins 2-22 tablet by ity of (B-COMPLEX) 00:00: mouth [place] tablet 00 daily. Medical Branch atorvastati 2020-05 Yes [id number] 10mg Take 1 [facility] n 10 mg 2-22 tablet by ity of tablet 00:00: mouth at [place] 00 bedtime. Medical Branch metFORMIN 2020-05 Yes [id number] 500mg Take 1 [facility] 500 mg 2-22 tablet by ity of tablet 00:00: mouth 2 [place] 00 (two) Medical times Branch daily with meals. lisinopriL 2020-05 Yes [id number] 20mg Take 1 U nivers 20 mg 2-22 tablet by ity of tablet 00:00: mouth [place] 00 daily. Medical Branch furosemide 2020-05 Yes [id number] 20mg Take 1 U nivers 20 mg 2-22 tablet by ity of tablet 00:00: mouth [place] 00 daily. Medical Branch aspirin 2020-05 Yes [id number] 81mg Take 1 Univ ers (ADULT LOW 2-22 tablet by ity of DOSE 00:00: mouth [place] ASPIRIN) 81 00 daily. Medica l mg EC Branch tablet lancets 2020-05 Yes [id number] USE Uni vers (ONETOUCH 2-22 DIRECTED ity of DELICA PLUS 00:00: TWICE [place] LANCET) 33 00 DAILY Medical gauge Misc Branch lancets-blo 2020-05 Yes [id number] 1{each} 1 Each 2 [facility] od glucose 2-22 (two) ity of strips 30 00:00: times [place] gauge Cmpk 00 daily. DX Medi freddy E11.9 Branch (Brand upon insurance approval) ergocalcife 2020-05 Yes [id number] Take 1 [facility] rol, 2-22 capsule by ity of vitamin d2, 00:00: mouth [place] 1,250 mcg 00 weekly. Medical (50,000 Branch unit) capsule B Complex 2020-05 Yes [id number] 1{tbl} Take 1 [facility] Vitamins 2-22 tablet by ity of (B-COMPLEX) 00:00: mouth [place] tablet 00 daily. Medical Branch atorvastati 2020-05 Yes [id number] 10mg Take 1 [facility] n 10 mg 2-22 tablet by ity of tablet 00:00: mouth at [place] 00 bedtime. Medical Branch metFORMIN 2020-05 Yes [id number] 500mg Take 1 [facility] 500 mg 2-22 tablet by ity of tablet 00:00: mouth 2 [place] 00 (two) Medical times Branch daily with meals. lisinopriL 2020-05 Yes [id number] 20mg Take 1 U nivers 20 mg 2-22 tablet by ity of tablet 00:00: mouth [place] 00 daily. Medical Branch furosemide 2020-05 Yes [id number] 20mg Take 1 U nivers 20 mg 2-22 tablet by ity of tablet 00:00: mouth [place] 00 daily. Medical Branch aspirin 2020-05 Yes [id number] 81mg Take 1 Univ ers (ADULT LOW 2-22 tablet by ity of DOSE 00:00: mouth [place] ASPIRIN) 81 00 daily. Medica l mg EC Branch tablet lancets 2020-05 Yes [id number] USE Uni vers (ONETOUCH 2-22 DIRECTED ity of DELICA PLUS 00:00: TWICE [place] LANCET) 33 00 DAILY Medical [facility] Branch lancets-blo 2020-05 Yes [id number] 1{each} 1 Each 2 [facility] od glucose 2-22 (two) ity of strips 30 00:00: times [place] gauge Cmpk 00 daily. DX Medi freddy E11.9 Branch (Brand upon insurance approval) ergocalcife 2020-05 Yes [id number] Take 1 [facility] rol, 2-22 capsule by ity of vitamin d2, 00:00: mouth [place] 1,250 mcg 00 weekly. Medical (50,000 Branch unit) capsule B Complex 2020-05 Yes [id number] 1{tbl} Take 1 [facility] Vitamins 2-22 tablet by ity of (B-COMPLEX) 00:00: mouth [place] tablet 00 daily. Medical Branch atorvastati 2020-05 Yes [id number] 10mg Take 1 [facility] n 10 mg 2-22 tablet by ity of tablet 00:00: mouth at [place] 00 bedtime. Medical Branch metFORMIN 2020-05 Yes [id number] 500mg Take 1 [facility] 500 mg 2-22 tablet by ity of tablet 00:00: mouth 2 [place] 00 (two) Medical times Branch daily with meals. lisinopriL 2020-05 Yes [id number] 20mg Take 1 U nivers 20 mg 2-22 tablet by ity of tablet 00:00: mouth [place] 00 daily. Medical Branch furosemide 2020-05 Yes [id number] 20mg Take 1 U nivers 20 mg 2-22 tablet by ity of tablet 00:00: mouth [place] 00 daily. Medical Branch aspirin 2020-05 Yes [id number] 81mg Take 1 Univ ers (ADULT LOW 2-22 tablet by ity of DOSE 00:00: mouth [place] ASPIRIN) 81 00 daily. Medica l mg EC Branch tablet lancets 2020-05 Yes [id number] USE Uni vers (ONETOUCH 2-22 DIRECTED ity of DELICA PLUS 00:00: TWICE [place] LANCET) 33 00 DAILY Medical gauge [facility] lancets-blo 2020-05 Yes [id number] 1{each} 1 Each 2 [facility] od glucose 2-22 (two) ity of strips 30 00:00: times [place] gauge Cmpk 00 daily. DX Medi freddy E11.9 Branch (Brand upon insurance approval) ergocalcife 2020-05 Yes [id number] Take 1 [facility] rol, 2-22 capsule by ity of vitamin d2, 00:00: mouth [place] 1,250 mcg 00 weekly. Medical (50,000 Branch unit) capsule B Complex 2020-05 Yes [id number] 1{tbl} Take 1 [facility] Vitamins 2-22 tablet by ity of (B-COMPLEX) 00:00: mouth [place] tablet 00 daily. Medical Branch atorvastati 2020-05 Yes [id number] 10mg Take 1 [facility] n 10 mg 2-22 tablet by ity of tablet 00:00: mouth at [place] 00 bedtime. Medical Branch metFORMIN 2020-05 Yes [id number] 500mg Take 1 [facility] 500 mg 2-22 tablet by ity of tablet 00:00: mouth 2 [place] 00 (two) Medical times Branch daily with meals. lisinopriL 2020-05 Yes [id number] 20mg Take 1 U nivers 20 mg 2-22 tablet by ity of tablet 00:00: mouth [place] 00 daily. Medical Branch furosemide 2020-05 Yes [id number] 20mg Take 1 U nivers 20 mg 2-22 tablet by ity of tablet 00:00: mouth [place] 00 daily. Medical Branch aspirin 2020-05 Yes [id number] 81mg Take 1 Univ ers (ADULT LOW 2-22 tablet by ity of DOSE 00:00: mouth [place] ASPIRIN) 81 00 daily. Medica l mg EC Branch tablet lancets 2020-05 Yes [id number] USE Uni vers (ONETOUCH 2-22 DIRECTED ity of DELICA PLUS 00:00: TWICE [place] LANCET) 33 00 DAILY Medical gauge Mis Branch lancets-blo 2020-05 Yes [id number] 1{each} 1 Each 2 [facility] od glucose 2-22 (two) ity of strips 30 00:00: times [place] gauge Cmpk 00 daily. DX Medi freddy E11.9 Branch (Brand upon insurance approval) ergocalcife 2020-05 Yes [id number] Take 1 [facility] rol, 2-22 capsule by ity of vitamin d2, 00:00: mouth [place] 1,250 mcg 00 weekly. Medical (50,000 Branch unit) capsule B Complex 2020-05 Yes [id number] 1{tbl} Take 1 [facility] Vitamins 2-22 tablet by ity of (B-COMPLEX) 00:00: mouth [place] tablet 00 daily. Medical Branch atorvastati 2020-05 Yes [id number] 10mg Take 1 [facility] n 10 mg 2-22 tablet by ity of tablet 00:00: mouth at [place] 00 bedtime. Medical Branch metFORMIN 2020-05 Yes [id number] 500mg Take 1 [facility] 500 mg 2-22 tablet by ity of tablet 00:00: mouth 2 [place] 00 (two) Medical times Branch daily with meals. lisinopriL 2020-05 Yes [id number] 20mg Take 1 U nivers 20 mg 2-22 tablet by ity of tablet 00:00: mouth [place] 00 daily. Medical Branch furosemide 2020-05 Yes [id number] 20mg Take 1 U nivers 20 mg 2-22 tablet by ity of tablet 00:00: mouth [place] 00 daily. Medical Branch aspirin 2020-05 Yes [id number] 81mg Take 1 Univ ers (ADULT LOW 2-22 tablet by ity of DOSE 00:00: mouth [place] ASPIRIN) 81 00 daily. Medica l mg EC Branch tablet lancets 2020-05 Yes [id number] USE Uni vers (ONETOUCH 2-22 DIRECTED ity of DELICA PLUS 00:00: TWICE [place] LANCET) 33 00 DAILY Medical [facility] M[facility] Branch lancets-blo 2020-05 Yes [id number] 1{each} 1 Each 2 [facility] od glucose 2-22 (two) ity of strips 30 00:00: times [place] gauge Cmpk 00 daily. DX Medi freddy E11.9 Branch (Brand upon insurance approval) B Complex 2020-05 Yes [id number] 1{tbl} Take 1 [facility] Vitamins 2-22 tablet by ity of (B-COMPLEX) 00:00: mouth [place] tablet 00 daily. Medical Branch atorvastati 2020-05 Yes [id number] 10mg Take 1 [facility] n 10 mg 2-22 tablet by ity of tablet 00:00: mouth at [place] 00 bedtime. Medical Branch metFORMIN 2020-05 Yes [id number] 500mg Take 1 [facility] 500 mg 2-22 tablet by ity of tablet 00:00: mouth 2 [place] 00 (two) Medical times Branch daily with meals. lisinopriL 2020-05 Yes [id number] 20mg Take 1 U nivers 20 mg 2-22 tablet by ity of tablet 00:00: mouth [place] 00 daily. Medical Branch furosemide 2020-05 Yes [id number] 20mg Take 1 U nivers 20 mg 2-22 tablet by ity of tablet 00:00: mouth [place] 00 daily. Medical Branch aspirin 2020-05 Yes [id number] 81mg Take 1 Univ ers (ADULT LOW 2-22 tablet by ity of DOSE 00:00: mouth [place] ASPIRIN) 81 00 daily. Medica l mg EC Branch tablet lancets 2020-05 Yes [id number] USE Uni vers (ONETOUCH 2-22 DIRECTED ity of DELICA PLUS 00:00: TWICE [place] LANCET) 33 00 DAILY Medical gauge [facility] lancets-blo 2020-05 Yes [id number] 1{each} 1 Each 2 Univers od glucose 2-22 (two) ity of strips 30 00:00: times [place] gauge Cmpk 00 daily. DX Medi freddy E11.9 Branch (Brand upon insurance approval) B Complex 2020-05 Yes [id number] 1{tbl} Take 1 Univers Vitamins 2-22 tablet by ity of (B-COMPLEX) 00:00: mouth [place] tablet 00 daily. Medical Branch atorvastati 2020-05 Yes [id number] 10mg Take 1 Univers n 10 mg 2-22 tablet by ity of tablet 00:00: mouth at [place] 00 bedtime. Medical Branch metFORMIN 2020-05 Yes [id number] 500mg Take 1 Univers 500 mg 2-22 tablet by ity of tablet 00:00: mouth 2 [place] 00 (two) Medical times Branch daily with meals. lisinopriL 2020-05 Yes [id number] 20mg Take 1 U nivers 20 mg 2-22 tablet by ity of tablet 00:00: mouth [place] 00 daily. Medical Branch furosemide 2020-05 Yes [id number] 20mg Take 1 U nivers 20 mg 2-22 tablet by ity of tablet 00:00: mouth [place] 00 daily. Medical Branch aspirin 2020-05 Yes [id number] 81mg Take 1 Univ ers (ADULT LOW 2-22 tablet by ity of DOSE 00:00: mouth [place] ASPIRIN) 81 00 daily. Medica l mg EC Branch tablet lancets 2020-05 Yes [id number] USE Uni vers (ONETOUCH 2-22 DIRECTED ity of DELICA PLUS 00:00: TWICE [place] LANCET) 33 00 DAILY Medical [facility] Branch lancets-blo 2020-05 Yes [id number] 1{each} 1 Each 2 Univers od glucose 2-22 (two) ity of strips 30 00:00: times [place] gauge Cmpk 00 daily. DX Medi freddy E11.9 Branch (Brand upon insurance approval) B Complex 2020-05 Yes [id number] 1{tbl} Take 1 Univers Vitamins 2-22 tablet by ity of (B-COMPLEX) 00:00: mouth [place] tablet 00 daily. Medical Branch atorvastati 2020-05 Yes [id number] 10mg Take 1 Univers n 10 mg 2-22 tablet by ity of tablet 00:00: mouth at [place] 00 bedtime. Medical Branch metFORMIN 2020-05 Yes [id number] 500mg Take 1 Univers 500 mg 2-22 tablet by ity of tablet 00:00: mouth 2 [place] 00 (two) Medical times Branch daily with meals. lisinopriL 2020-05 Yes [id number] 20mg Take 1 U nivers 20 mg 2-22 tablet by ity of tablet 00:00: mouth [place] 00 daily. Medical Branch furosemide 2020-05 Yes [id number] 20mg Take 1 U nivers 20 mg 2-22 tablet by ity of tablet 00:00: mouth [place] 00 daily. Medical Branch aspirin 2020-05 Yes [id number] 81mg Take 1 Univ ers (ADULT LOW 2-22 tablet by ity of DOSE 00:00: mouth [place] ASPIRIN) 81 00 daily. Medica l mg EC Branch tablet lancets 2020-05 Yes [id number] USE Uni vers (ONETOUCH 2-22 DIRECTED ity of DELICA PLUS 00:00: TWICE [place] LANCET) 33 00 DAILY Medical [facility] Branch lancets-blo 2020-05 Yes [id number] 1{each} 1 Each 2 Univers od glucose 2-22 (two) ity of strips 30 00:00: times [place] gauge Cmpk 00 daily. DX Medi freddy E11.9 Branch (Brand upon insurance approval) B Complex 2020-05 Yes [id number] 1{tbl} Take 1 Univers Vitamins 2-22 tablet by ity of (B-COMPLEX) 00:00: mouth [place] tablet 00 daily. Medical Branch atorvastati 2020-05 Yes [id number] 10mg Take 1 Univers n 10 mg 2-22 tablet by ity of tablet 00:00: mouth at [place] 00 bedtime. Medical Branch metFORMIN 2020-05 Yes [id number] 500mg Take 1 Univers 500 mg 2-22 tablet by ity of tablet 00:00: mouth 2 [place] 00 (two) Medical times Branch daily with meals. lisinopriL 2020-05 Yes [id number] 20mg Take 1 U nivers 20 mg 2-22 tablet by ity of tablet 00:00: mouth [place] 00 daily. Medical Branch furosemide 2020-05 Yes [id number] 20mg Take 1 U nivers 20 mg 2-22 tablet by ity of tablet 00:00: mouth [place] 00 daily. Medical Branch aspirin 2020-05 Yes [id number] 81mg Take 1 Univ ers (ADULT LOW 2-22 tablet by ity of DOSE 00:00: mouth [place] ASPIRIN) 81 00 daily. Medica l mg EC Branch tablet lancets 2020-05 Yes [id number] USE Uni vers (ONETOUCH 2-22 DIRECTED ity of DELICA PLUS 00:00: TWICE [place] LANCET) 33 00 DAILY Medical [facility] Branch lancets-blo 2020-05 Yes [id number] 1{each} 1 Each 2 Univers od glucose 2-22 (two) ity of strips 30 00:00: times [facility] Cmpk 00 daily. DX Medi freddy E11.9 Branch (Brand upon insurance approval) B Complex 2020-05 Yes [id number] 1{tbl} Take 1 Univers Vitamins 2-22 tablet by ity of (B-COMPLEX) 00:00: mouth [place] tablet 00 daily. Medical Branch atorvastati 2020-05 Yes [id number] 10mg Take 1 Univers n 10 mg 2-22 tablet by ity of tablet 00:00: mouth at [place] 00 bedtime. Medical Branch metFORMIN 2020-05 Yes [id number] 500mg Take 1 Univers 500 mg 2-22 tablet by ity of tablet 00:00: mouth 2 [place] 00 (two) Medical times Branch daily with meals. lisinopriL 2020-05 Yes [id number] 20mg Take 1 U nivers 20 mg 2-22 tablet by ity of tablet 00:00: mouth [place] 00 daily. Medical Branch furosemide 2020-05 Yes [id number] 20mg Take 1 U nivers 20 mg 2-22 tablet by ity of tablet 00:00: mouth [place] 00 daily. Medical Branch aspirin 2020-05 Yes [id number] 81mg Take 1 Univ ers (ADULT LOW 2-22 tablet by ity of DOSE 00:00: mouth [place] ASPIRIN) 81 00 daily. Medica l mg EC Branch tablet lancets 2020-05 Yes [id number] USE Uni vers (ONETOUCH 2-22 DIRECTED ity of DELICA PLUS 00:00: TWICE [place] LANCET) 33 00 DAILY Medical gauge [facility] lancets-blo 2020-05 Yes [id number] 1{each} 1 Each 2 Univers od glucose 2-22 (two) ity of strips 30 00:00: times [place] gauge Cmpk 00 daily. DX Medi freddy E11.9 Branch (Brand upon insurance approval) B Complex 2020-05 Yes [id number] 1{tbl} Take 1 Univers Vitamins 2-22 tablet by ity of (B-COMPLEX) 00:00: mouth [place] tablet 00 daily. Medical Branch atorvastati 2020-05 Yes [id number] 10mg Take 1 Univers n 10 mg 2-22 tablet by ity of tablet 00:00: mouth at [place] 00 bedtime. Medical Branch metFORMIN 2020-05 Yes [id number] 500mg Take 1 Univers 500 mg 2-22 tablet by ity of tablet 00:00: mouth 2 [place] 00 (two) Medical times Branch daily with meals. lisinopriL 2020-05 Yes [id number] 20mg Take 1 U nivers 20 mg 2-22 tablet by ity of tablet 00:00: mouth [place] 00 daily. Medical Branch furosemide 2020-05 Yes [id number] 20mg Take 1 U nivers 20 mg 2-22 tablet by ity of tablet 00:00: mouth [place] 00 daily. Medical Branch aspirin 2020-05 Yes [id number] 81mg Take 1 Univ ers (ADULT LOW 2-22 tablet by ity of DOSE 00:00: mouth [place] ASPIRIN) 81 00 daily. Medica l mg EC Branch tablet lancets 2020-05 Yes [id number] USE Uni vers (ONETOUCH 2-22 DIRECTED ity of DELICA PLUS 00:00: TWICE [place] LANCET) 33 00 DAILY Medical gauge [facility] lancets-blo 2020-05 Yes [id number] 1{each} 1 Each 2 Univers od glucose 2-22 (two) ity of strips 30 00:00: times [place] gauge Cmpk 00 daily. DX Medi freddy E11.9 Branch (Brand upon insurance approval) ergocalcife 2020-05- No [id number] 80664C Take 1 Univers rol, 2-22 10-13 capsule by ity of vitamin d2, 00:00: 00:[place] mouth [place] 1,250 [place]cg 00 :00 weekly. Medical (50,000 Branch unit) capsule ergocalcife 2020-05- No [id number] 67748B Take 1 Univers rol, 2-22 10-13 capsule by ity of vitamin d2, 00:00: 00:[place] mouth [place] 1,250 mcg 00 :00 weekly. Medical (50,000 Branch unit) capsule foLIC acid 0 Yes [id number] 1mg Take 1 Un greg 1 mg tablet 6-22 tablet by ity of 00:00: mouth [place] 00 daily. Medical Branch vitamin 2020-0 Yes [id number] 1000ug Take 1 Uni vers B-12 6-22 tablet by ity of (VITAMIN 00:00: mouth [place] B-12) 1,000 00 daily. Medica l mcg tablet Branch foLIC acid 2020-0 Yes [id number] 1mg Take 1 Un greg 1 mg tablet 6-22 tablet by ity of 00:00: mouth [place] 00 daily. Medical Branch vitamin 2020-0 Yes [id number] 1000ug Take 1 Uni vers B-12 6-22 tablet by ity of (VITAMIN 00:00: mouth [place] B-12) 1,000 00 daily. Medica l mcg tablet Branch foLIC acid 2020-0 Yes [id number] 1mg Take 1 Un greg 1 mg tablet 6-22 tablet by ity of 00:00: mouth [place] 00 daily. Medical Branch vitamin 2020-0 Yes [id number] 1000ug Take 1 Uni vers B-12 6-22 tablet by ity of (VITAMIN 00:00: mouth [place] B-12) 1,000 00 daily. Medica l mcg tablet Branch foLIC acid 2020-0 Yes [id number] 1mg Take 1 Un greg 1 mg tablet 6-22 tablet by ity of 00:00: mouth [place] 00 daily. Medical Branch vitamin 2020-0 Yes [id number] 1000ug Take 1 Uni vers B-12 6-22 tablet by ity of (VITAMIN 00:00: mouth [place] B-12) 1,000 00 daily. Medica l mcg tablet Branch foLIC acid 2020-0 Yes [id number] 1mg Take 1 Un greg 1 mg tablet 6-22 tablet by ity of 00:00: mouth [place] 00 daily. Medical Branch vitamin 2020-0 Yes [id number] 1000ug Take 1 Uni vers B-12 6-22 tablet by ity of (VITAMIN 00:00: mouth [place] B-12) 1,000 00 daily. Medica l mcg tablet Branch foLIC acid 2020-0 Yes [id number] 1mg Take 1 Un greg 1 mg tablet 6-22 tablet by ity of 00:00: mouth [place] 00 daily. Medical Branch vitamin 2020-0 Yes [id number] 1000ug Take 1 Uni vers B-12 6-22 tablet by ity of (VITAMIN 00:00: mouth [place] B-12) 1,000 00 daily. Medica l mcg tablet Branch foLIC acid 2020-0 Yes [id number] 1mg Take 1 Un greg 1 mg tablet 6-22 tablet by ity of 00:00: mouth [place] 00 daily. Medical Branch vitamin 2020-0 Yes [id number] 1000ug Take 1 Uni vers B-12 6-22 tablet by ity of (VITAMIN 00:00: mouth [place] B-12) 1,000 00 daily. Medica l mcg tablet Branch foLIC acid 2020-0 Yes [id number] 1mg Take 1 Un greg 1 mg tablet 6-22 tablet by ity of 00:00: mouth [place] 00 daily. Medical Branch vitamin 2020-0 Yes [id number] 1000ug Take 1 Uni vers B-12 6-22 tablet by ity of (VITAMIN 00:00: mouth [place] B-12) 1,000 00 daily. Medica l mcg tablet Branch foLIC acid 2020-0 Yes [id number] 1mg Take 1 Un greg 1 mg tablet 6-22 tablet by ity of 00:00: mouth [place] 00 daily. Medical Branch vitamin 2020-0 Yes [id number] 1000ug Take 1 Uni vers B-12 6-22 tablet by ity of (VITAMIN 00:00: mouth [place] B-12) 1,000 00 daily. Medica l mcg tablet Branch foLIC acid 2020-0 Yes [id number] 1mg Take 1 Un greg 1 mg tablet 6-22 tablet by ity of 00:00: mouth [place] 00 daily. Medical Branch vitamin 2020-0 Yes [id number] 1000ug Take 1 Uni vers B-12 6-22 tablet by ity of (VITAMIN 00:00: mouth [place] B-12) 1,000 00 daily. Medica l mcg tablet Branch foLIC acid 2020-0 Yes [id number] 1mg Take 1 Un greg 1 mg tablet 6-22 tablet by ity of 00:00: mouth [place] 00 daily. Medical Branch vitamin 2020-0 Yes [id number] 1000ug Take 1 Uni vers B-12 6-22 tablet by ity of (VITAMIN 00:00: mouth [place] B-12) 1,000 00 daily. Medica l mcg tablet Branch foLIC acid 2020-0 Yes [id number] 1mg Take 1 Un greg 1 mg tablet 6-22 tablet by ity of 00:00: mouth [place] 00 daily. Medical Branch vitamin 2020-0 Yes [id number] 1000ug Take 1 Uni vers B-12 6-22 tablet by ity of (VITAMIN 00:00: mouth [place] B-12) 1,000 00 daily. Medica l mcg tablet Branch foLIC acid 2020-0 Yes [id number] 1mg Take 1 Un greg 1 mg tablet 6-22 tablet by ity of 00:00: mouth [place] 00 daily. Medical Branch vitamin 2020-0 Yes [id number] 1000ug Take 1 Uni vers B-12 6-22 tablet by ity of (VITAMIN 00:00: mouth [place] B-12) 1,000 00 daily. Medica l mcg tablet Branch foLIC acid 2020-0 Yes [id number] 1mg Take 1 Un greg 1 mg tablet 6-22 tablet by ity of 00:00: mouth [place] 00 daily. Medical Branch vitamin 2020-0 Yes [id number] 1000ug Take 1 Uni vers B-12 6-22 tablet by ity of (VITAMIN 00:00: mouth [place] B-12) 1,000 00 daily. Medica l mcg tablet Branch foLIC acid 2020-0 Yes [id number] 1mg Take 1 Un greg 1 mg tablet 6-22 tablet by ity of 00:00: mouth [place] 00 daily. Medical Branch vitamin 1-0 Yes [id number] 1000ug Take 1 Uni vers B-12 6-22 tablet by ity of (VITAMIN 00:00: mouth [place] B-12) 1,000 00 daily. Medica l mcg tablet Branch ONETOUCH Yes [id number] CHECK Uni vers ULTRA BLUE 5-25 BLOOD ity of TEST STRIP 00:00: [place]GAR ONE [place] strip DAY [facility] Yes [id number] CHECK Uni vers ULTRA BLUE 5-25 BLOOD ity of TEST STRIP 00:00: [place] [facility] Yes [id number] CHECK Uni vers ULTRA BLUE 5-25 BLOOD ity of TEST STRIP 00:00: [place] [facility] Yes [id number] CHECK Uni vers ULTRA BLUE 5-25 BLOOD ity of TEST STRIP 00:00: [place] [facility] Yes [id number] CHECK Uni vers ULTRA BLUE 5-25 BLOOD ity of TEST STRIP 00:00: [place] [facility] Yes [id number] CHECK Uni vers ULTRA BLUE 5-25 BLOOD ity of TEST STRIP 00:00: [place] [facility] Yes [id number] CHECK Uni vers ULTRA BLUE 5-25 BLOOD ity of TEST STRIP 00:00: [place] [facility] Yes [id number] CHECK Uni vers ULTRA BLUE 5-25 BLOOD ity of TEST STRIP 00:00: [place] [facility] Yes [id number] CHECK Uni vers ULTRA BLUE 5-25 BLOOD ity of TEST STRIP 00:00: [place] strip DAY [facility] Yes [id number] CHECK Uni vers ULTRA BLUE 5-25 BLOOD ity of TEST STRIP 00:00: [place] strip DAY [facility] Yes [id number] CHECK Uni vers ULTRA BLUE 5-25 BLOOD ity of TEST STRIP 00:00: [place] strip DAY [facility] Yes [id number] CHECK Uni vers ULTRA BLUE 5-25 BLOOD ity of TEST STRIP 00:00: [place] strip DAY [facility] Yes [id number] CHECK Uni vers ULTRA BLUE 5-25 BLOOD ity of TEST STRIP 00:00: SU[place]AR ONE [place] strip 00 A DAY Medical Branch ONETOUCH Yes [id number] CHECK Uni vers ULTRA BLUE 5-25 BLOOD ity of TEST STRIP 00:00: SU[place]AR ONE [place] strip A DAY Medical Branch ONETOUCH Yes [id number] CHECK Uni vers ULTRA BLUE 5-25 BLOOD ity of TEST STRIP 00:00: SUGAR ONE [place] strip 00 A DAY Medical Branch meclizine 2019- Yes [id number] 12.5mg Take 1 Univers 12.5 mg 1-03 tablet by ity of tablet 00:00: mouth 3 (three) Medical times Branch daily as needed for Dizziness. nortriptyli 2019-05 Yes [id number] 50mg Take 1 Univers ne 50 mg 1-03 capsule by ity o f capsule 00:00: mouth at [place] 00 bedtime. Medical Branch meclizine 2019-05 Yes [id number] 12.5mg Take 1 Univers 12.5 mg 1-03 tablet by ity of tablet 00:00: mouth 3 (three) Medical times Branch daily as needed for Dizziness. nortriptyli 2019-05 Yes [id number] 50mg Take 1 Univers ne 50 mg 1-03 capsule by ity o f capsule 00:00: mouth at [place] 00 bedtime. Medical Branch meclizine 2019-05 Yes [id number] 12.5mg Take 1 Univers 12.5 mg 1-03 tablet by ity of tablet 00:00: mouth 3 (three) Medical times Branch daily as needed for Dizziness. nortriptyli 2019-05 Yes [id number] 50mg Take 1 Univers ne 50 mg 1-03 capsule by ity o f capsule 00:00: mouth at [place] 00 bedtime. Medical Branch meclizine 2019-05 Yes [id number] 12.5mg Take 1 Univers 12.5 mg 1-03 tablet by ity of tablet 00:00: mouth 3 [place] (three) Medical times Branch daily as needed for Dizziness. nortriptyli 2019-05 Yes [id number] 50mg Take 1 Univers ne 50 mg 1-03 capsule by ity o f capsule 00:00: mouth at [place] 00 bedtime. Medical Branch meclizine 2019- Yes [id number] 12.5mg Take 1 Univers 12.5 mg 1-03 tablet by ity of tablet 00:00: mouth 3 (three) Medical times Branch daily as needed for Dizziness. nortriptyli 2019-05 Yes [id number] 50mg Take 1 Univers ne 50 mg 1-03 capsule by ity o f capsule 00:00: mouth at [place] 00 bedtime. Medical Branch meclizine 2019- Yes [id number] 12.5mg Take 1 Univers 12.5 mg 1-03 tablet by ity of tablet 00:00: mouth 3 (three) Medical times Branch daily as needed for Dizziness. nortriptyli 2019-05 Yes [id number] 50mg Take 1 Univers ne 50 mg 1-03 capsule by ity o f capsule 00:00: mouth at [place] bedtime. Medical Branch meclizine 2019-05 Yes [id number] 12.5mg Take 1 Univers 12.5 mg 1-03 tablet by ity of tablet 00:00: mouth 3 (three) Medical times Branch daily as needed for Dizziness. nortriptyli 2019-05 Yes [id number] 50mg Take 1 Univers ne 50 mg 1-03 capsule by ity o f capsule 00:00: mouth at [place] 00 bedtime. Medical Branch meclizine 2019-05 Yes [id number] 12.5mg Take 1 Univers 12.5 mg 1-03 tablet by ity of tablet 00:00: mouth 3 (three) Medical times [place] daily as needed for Dizziness. nortriptyli 2019-05 Yes [id number] 50mg Take 1 Univers ne 50 mg 1-03 capsule by ity o f capsule 00:00: mouth at [place] 00 bedtime. Medical Branch meclizine 2019-05 Yes [id number] 12.5mg Take 1 Univers 12.5 mg 1-03 tablet by ity of tablet 00:00: mouth 3 (three) Medical times Branch daily as needed for Dizziness. nortriptyli 2019-05 Yes [id number] 50mg Take 1 Univers ne 50 mg 1-03 capsule by ity o f capsule 00:00: mouth at [place] 00 bedtime. Medical Branch meclizine 2019- Yes [id number] 12.5mg Take 1 Univers 12.5 mg 1-03 tablet by ity of tablet 00:00: mouth 3 (three) Medical times Branch daily as needed for Dizziness. meclizine 2020- Yes [id number] 12.5mg Take 1 Univers 12.5 mg 1-03 tablet by ity of tablet 00:00: mouth 3 (three) Medical times Branch daily as needed for Dizziness. meclizine 2020- Yes [id number] 12.5mg Take 1 Univers 12.5 mg 1-03 tablet by ity of tablet 00:00: mouth 3 (three) Medical times Branch daily as needed for Dizziness. meclizine 2019- Yes [id number] 12.5mg Take 1 Univers 12.5 mg 1-03 tablet by ity of tablet 00:00: mouth 3 (three) Medical times Branch daily as needed for Dizziness. meclizine 2019- Yes [id number] 12.5mg Take 1 Univers 12.5 mg 1-03 tablet by ity of tablet 00:00: mouth 3 (three) Medical times Branch daily as needed for Dizziness. meclizine 2019- Yes [id number] 12.5mg Take 1 Univers 12.5 mg 1-03 tablet by ity of tablet 00:00: mouth 3 (three) Medical times Branch daily as needed for Dizziness. nortriptyli 2019-05- No [id number] 50mg Take 1 Univers ne 50 mg 1-03 10-13 capsule by ity of capsule 00:00: 00:00 mouth at [place] 00 :00 bedtime. Medical Branch nortriptyli 2019-05- No [id number] 50mg Take 1 Univers ne 50 mg 1-03 10-13 capsule by ity of capsule 00:00: 00:00 mouth at [place] 00 :00 bedtime. Medical Branch Blood-Gluco 2020-0 Yes [id number] Check Univers se Meter 3-28 sugars 1 ity of Kit 00:00: times a 00 day. Dx Medical Code Branch E11.9. Brand per insurance. Blood-Gluco 2020-0 Yes [id number] Check Univers se Meter 3-28 sugars 1 ity of Kit 00:00: times a 00 day. Dx Medical Code Branch E11.9. Brand per insurance. Blood-Gluco 2020-0 Yes [id number] Check Univers se Meter 3-28 sugars 1 ity of Kit 00:00: times a 00 day. Dx Medical Code Branch E11.9. Brand per insurance. Blood-Gluco 2020-0 Yes [id number] Check Univers se Meter 3-28 sugars 1 ity of Kit 00:00: times a 00 day. Dx Medical Code Branch E11.9. Brand per insurance. Blood-Gluco 2020-0 Yes [id number] Check Univers se Meter 3-28 sugars 1 ity of Kit 00:00: times a [place] 00 day. Dx Medical Code Branch E11.9. Brand per insurance. Blood-Gluco 2020-0 Yes [id number] Check Univers se Meter 3-28 sugars 1 ity of Kit 00:00: times a day. Dx Medical Code Branch E11.9. Brand per insurance. Blood-Gluco 2020-0 Yes [id number] Check Univers se Meter 3-28 sugars 1 ity of Kit 00:00: times a day. Dx Medical Code Branch E11.9. Brand per insurance. Blood-Gluco 2020-0 Yes [id number] Check Univers se Meter 3-28 sugars 1 ity of Kit 00:00: times a day. Dx Medical Code Branch E11.9. Brand per insurance. Blood-Gluco 2020-0 Yes [id number] Check Univers se Meter 3-28 sugars 1 ity of Kit 00:00: times a day. Dx Medical Code Branch E11.9. Brand per insurance. Blood-Gluco 2020-0 Yes [id number] Check Univers se Meter 3-28 sugars 1 ity of Kit 00:00: times a day. Dx Medical Code Branch E11.9. Brand per insurance. Blood-Gluco 2020-0 Yes [id number] Check Univers se Meter 3-28 sugars 1 ity of Kit 00:00: times a 00 day. Dx Medical Code Branch E11.9. Brand per insurance. Blood-Gluco 2020-0 Yes [id number] Check Univers se Meter 3-28 sugars 1 ity of Kit 00:00: times a 00 day. Dx Medical Code Branch E11.9. Brand per insurance. Blood-Gluco 2020-0 Yes [id number] Check Univers se Meter 3-28 sugars 1 ity of Kit 00:00: times a [place] 00 day. Dx Medical Code Branch E11.9. Brand per insurance. Blood-Gluco 2020-0 Yes [id number] Check Univers se Meter 3-28 sugars 1 ity of Kit 00:00: times a day. Dx Medical Code Branch E11.9. Brand per insurance. Blood-Gluco 2020-0 Yes [id number] Check Univers se Meter 3-28 sugars 1 ity of Kit 00:00: times a day. Dx Medical Code Branch E11.9. Brand per insurance. Immunizations Ordered Filled Immunization Date Status Comments [facility] e Immunization Name Name SARS-COV-2 COVID-19 2021-10-28 [...] Unive rsity of MODERNA VACCINE 00:00:[address] [place] [facility] ical Branch SARS-COV-2 COVID-19 2021-04-22 Completed Unive rsity of MODERNA VACCINE 00:00:00 [place] Med ical Branch SARS-COV-2 COVID-19 2021-04-22 Completed Unive rsity of MODERNA VACCINE 00:00:00 [place] Med ical Branch SARS-COV-2 COVID-19 2021-04-22 Completed Unive rsity of MODERNA 12+ YRS 00:00:00 [place] Med ical VACCINE Branch SARS-COV-2 COVID-19 2021-04-22 Completed Unive rsity of MODERNA 12+ YRS 00:00:00 [place] Med ical VACCINE Branch SARS-COV-2 COVID-19 2021-04-22 Completed Unive rsity of MODERNA 12+ YRS 00:00:00 [place] Med ical VACCINE Branch SARS-COV-2 COVID-19 2021-04-22 Completed Unive rsity of MODERNA 12+ YRS 00:00:00 [place] Med ical VACCINE Branch SARS-COV-2 COVID-19 2021-04-22 Completed Unive rsity of MODERNA 12+ YRS 00:00:00 [place] Med ical VACCINE Branch SARS-COV-2 COVID-19 2021-04-22 Completed Unive rsity of MODERNA 12+ YRS 00:00:00 [place] Med ical VACCINE Branch SARS-COV-2 COVID-19 2021-04-22 Completed Unive rsity of MODERNA 12+ YRS 00:00:00 [place] Med ical VACCINE Branch SARS-COV-2 COVID-19 2021-04-22 Completed Unive rsity of MODERNA 12+ YRS 00:00:00 [place] Med ical VACCINE Branch SARS-COV-2 COVID-19 2021-04-22 Completed Unive rsity of MODERNA 12+ YRS 00:00:00 [place] Med ical VACCINE Branch SARS-COV-2 COVID-19 2021-04-22 Completed Unive rsity of MODERNA 12+ YRS 00:00:00 [place] Med ical VACCINE Branch SARS-COV-2 COVID-19 2021-04-22 Completed Unive rsity of MODERNA 12+ YRS 00:00:00 [place] Med ical VACCINE Branch SARS-COV-2 COVID-19 2020-07-30 Completed Unive rsity of MODERNA VACCINE 00:00:00 [place] Med ical Branch SARS-COV-2 COVID-19 2020-07-30 Completed Unive rsity of MODERNA VACCINE 00:00:00 [place] Med ical Branch SARS-COV-2 COVID-19 2020-07-30 Completed Unive rsity of MODERNA VACCINE 00:00:00 [place] Med ical Branch SARS-COV-2 COVID-19 2020-07-30 Completed Unive rsity of MODERNA VACCINE 00:00:00 [place] Med ical Branch SARS-COV-2 COVID-19 2020-07-30 Completed Unive rsity of MODERNA 12+ YRS 00:00:00 [place] Med ical VACCINE Branch SARS-COV-2 COVID-19 2020-07-30 Completed Unive rsity of MODERNA 12+ YRS 00:00:00 [place] Med ical VACCINE Branch SARS-COV-2 COVID-19 2020-07-30 Completed Unive rsity of MODERNA 12+ YRS 00:00:00 [place] Med ical VACCINE Branch SARS-COV-2 COVID-19 2020-07-30 Completed Unive rsity of MODERNA 12+ YRS 00:00:00 [place] Med ical VACCINE Branch SARS-COV-2 COVID-19 2020-07-30 Completed Unive rsity of MODERNA 12+ YRS 00:00:[address] [place] [facility] ical VACCINE Branch SARS-COV-2 COVID-19 2020-07-30 Completed Unive rsity of MODERNA 12+ YRS 00:00:[address] [place] [facility] ical VACCINE Branch SARS-COV-2 COVID-19 2020-07-30 Completed Unive rsity of MODERNA 12+ YRS 00:00:00 [facility] ical VACCINE Branch SARS-COV-2 COVID-19 2020-07-30 Completed Unive rsity of MODERNA 12+ YRS 00:00:[address] [place] [facility] ical VACCINE Branch SARS-COV-2 COVID-19 2020-07-30 Completed Unive rsity of MODERNA 12+ YRS 00:00:[address] [place] [facility] ical VACCINE Branch SARS-COV-2 COVID-19 2020-07-30 Completed Unive rsity of MODERNA 12+ YRS 00:00:00 [facility] ical VACCINE Branch SARS-COV-2 COVID-19 2020-07-30 Completed Unive rsity of MODERNA 12+ YRS 00:00:00 [facility] VACCINE Branch Influenza High Dose 2019-06-14 Completed Unive rsity of 00:00:00 [facility] Influenza High Dose 2019-06-14 Completed Unive rsity of 00:00:00 [facility] Influenza High Dose 2019-06-14 Completed Unive rsity of 00:00:00 [facility] Influenza High Dose 2019-06-14 Completed Unive rsity of 00:00:00 [facility] Influenza High Dose 2019-06-14 Completed Unive rsity of 00:00:00 [facility] Influenza High Dose 2019-06-14 Completed Unive rsity of 00:00:00 [facility] Influenza High Dose 2019-06-14 Completed Unive rsity of 00:00:00 [facility] Influenza High Dose 2019-06-14 Completed Unive rsity of 00:00:00 [facility] [facility] [place] Influenza High Dose 2019-06-14 Completed Unive rsity of 00:00:00 [facility] Influenza High Dose 2019-06-14 Completed Unive rsity of 00:00:00 [facility] Influenza High Dose 2019-06-14 Completed Unive rsity of 00:00:00 [facility] Influenza High Dose 2019-06-14 Completed Unive rsity of 00:00:00 [facility] Influenza High Dose 2019-06-14 Completed Unive rsity of 00:00:00 [facility] Influenza High Dose 2019-06-14 Completed Unive rsity of 00:00:00 [facility] Influenza High Dose 2019-06-14 Completed Unive rsity of 00:00:00 [facility] Pneumococcal 2018-12-20 Completed University o f Polysaccharide, 00:00:00 [place] [facility] PPSV23 (PNEUMOVAX) Branch Pneumococcal 2018-12-20 Completed University o f Polysaccharide, 00:00:00 [place] [facility] PPSV23 (PNEUMOVAX) Branch Pneumococcal 2018-12-20 Completed University o f Polysaccharide, 00:00:00 [place] [facility] PPSV23 (PNEUMOVAX) Branch Pneumococcal 2018-12-20 Completed University o f Polysaccharide, 00:00:00 [place] [facility] PPSV23 (PNEUMOVAX) Branch Pneumococcal 2018-12-20 Completed University o f Polysaccharide, 00:00:00 [place] [facility] PPSV23 (PNEUMOVAX) Branch Pneumococcal 2018-12-20 Completed University o f Polysaccharide, 00:00:00 [place] [facility] PPSV23 (PNEUMOVAX) Branch Pneumococcal 2018-12-20 Completed University o f Polysaccharide, 00:00:00 [place] [facility] PPSV23 (PNEUMOVAX) Branch Pneumococcal 2018-12-20 Completed University o f Polysaccharide, 00:00:00 [place] [facility] PPSV23 (PNEUMOVAX) Branch Pneumococcal 2018-12-20 Completed University o f Polysaccharide, 00:00:00 [place] [facility] PPSV23 (PNEUMOVAX) Branch Pneumococcal 2018-12-20 Completed University o f Polysaccharide, 00:00:00 [place] [facility] PPSV23 (PNEUMOVAX) Branch Pneumococcal 2018-12-20 Completed University o f Polysaccharide, 00:00:00 [place] [facility] PPSV23 (PNEUMOVAX) Branch Pneumococcal 2018-12-20 Completed University o f Polysaccharide, 00:00:00 [place] [facility] PPSV23 (PNEUMOVAX) Branch Pneumococcal 2018-12-20 Completed University o f Polysaccharide, 00:00:00 [place] [facility] PPSV23 (PNEUMOVAX) Branch Pneumococcal 2018-12-20 Completed University o f Polysaccharide, 00:00:00 [place] [facility] PPSV23 (PNEUMOVAX) Branch Pneumococcal 2018-12-20 Completed University o f Polysaccharide, 00:00:00 [facility] ical PPSV23 (PNEUMOVAX) Branch Vital Signs Vital Name Observation Time Observation Value Comments Source Systolic blood 2022-02-23 18:14:00 117 mm[Hg] Univer sity of [facility] Diastolic blood 2022-02-23 18:14:00 76 mm[Hg] Unive rsity of [facility] Heart rate 2022-02-23 18:14:00 85 /min [facility] [place] [facility] Body temperature 2022-02-23 18:14:00 36.06 Kimberly Univ ers[facility] [place] [facility] Respiratory rate 2022-02-23 18:14:00 18 /min Univ [facility] Body height 2022-02-23 18:14:00 188 cm [facility] Body weight 2022-02-23 18:14:00 148.598 kg [facility] [place] [facility] BMI 2022-02-23 18:14:00 42.06 kg/m2 [facility] [place] [facility] Oxygen saturation in 2022-02-23 18:14:00 96 /min University of Arterial blood by [facility] freddy Pulse oximetry Branch Systolic blood 2022-02-11 19:59:00 110 mm[Hg] Univer sity of [facility] Diastolic blood 2022-02-11 19:59:00 73 mm[Hg] Unive rsity of [facility] Heart rate 2022-02-11 19:59:00 83 /min [facility] Body temperature 2022-02-11 19:59:00 36.17 Kimberly [facility] Respiratory rate 2022-02-11 19:59:00 18 /min Univ [facility] Body height 2022-02-11 19:59:00 188 cm [facility] Body weight 2022-02-11 19:59:00 149.188 kg [facility] BMI 2022-02-11 19:59:00 42.23 kg/m2 [facility] Oxygen saturation in 2022-02-11 19:59:00 97 /min University of Arterial blood by [place] [employer] [facility] Pulse oximetry Branch Systolic blood 2022-01-28 20:38:00 131 mm[Hg] Univer sity of [facility] Diastolic blood 2022-01-28 20:38:00 78 mm[Hg] Unive rsity of [facility] Heart rate 2022-01-28 20:38:00 79 /min [facility] Respiratory rate 2022-01-28 18:44:00 18 /min Univ [facility] Body height 2022-01-28 18:44:00 188 cm [facility] Body weight 2022-01-28 18:44:00 151.955 kg [facility] [place] [facility] BMI 2022-01-28 18:44:00 43.01 kg/m2 [facility] Oxygen saturation in 2022-01-28 18:44:00 96 /min University of Arterial blood by [place] [employer] [facility] Pulse oximetry Branch Systolic blood 2021-12-25 21:00:00 148 mm[Hg] Univer [facility]ity of [facility] Diastolic blood 2021-12-25 21:00:00 98 mm[Hg] Unive rsity of [facility] Heart rate 2021-12-25 21:00:00 70 /min [facility] Respiratory rate 2021-12-25 21:00:00 18 /min Univ [facility] Oxygen saturation in 2021-12-25 21:00:00 96 /min University of Arterial blood by [place] [employer] [facility] Pulse oximetry Branch Body temperature 2021-12-25 18:41:00 37 Kimberly [facility] Body height 2021-12-25 18:41:00 188 cm [facility] Body weight 2021-12-25 18:41:00 155.13 kg [facility] BMI 2021-12-25 18:41:00 43.91 kg/m2 [facility] Systolic blood 2021-10-28 19:48:00 134 mm[Hg] Univer sity of [facility] Diastolic blood 2021-10-28 19:48:00 74 mm[Hg] Unive rsity of [facility] Heart rate 2021-10-28 19:46:00 72 /min [facility] Body temperature 2021-10-28 19:46:00 36.5 Kimberly [facility] Respiratory rate 2021-10-28 19:46:00 18 /min [facility] Body height 2021-10-28 19:46:[address] [facility] Body weight 2021-10-28 19:46:[address] [facility] BMI 2021-10-28 19:46:00 43.91 kg/m2 [facility] Oxygen saturation in 2021-10-28 19:46:00 96 /min [facility] Arterial blood by [facility] Pulse oximetry Branch Procedures Procedure Date / Time Performed Performing Clinician Sour e PAIN MANAGEMENT 2022-02-11 05:01:00 Doctor Unassigned, No [facility] AGREEMENT & INFORMED Name Medical Bra nc CONSENT POCT HEMOGLOBIN A1C 2022-01-28 20:39:00 Meliton Oliver [facility] XR KNEE 3 VW LEFT 2021-12-25 19:19:30 Angela Shannon [facility] CONSENT/REFUSAL FOR 2021-12-25 18:34:36 Doctor Unassigned, No [facility] DIAGNOSIS AND Name Medical Branch TREATMENT EXTERNAL PROVIDER 2021-11-14 05:01:00 Doctor Unassigned, No [facility] RECORDS Name Medical [place] Encounters Start End Encounter Admission Attending Care Care Encounter Source Date/Time Date/Time Type Type Clinicians Facility Department ID 2022-06-09 2022-06-09 Outpatient Jamel OLIVER [facility] [id number] Univers 14:40:00 14:40:00 MELITON huston [facility] 2022-03-02 2022-03-02 Outpatient Jamel MEEKS [facility] [id number] Univers 16:00:00 16:00:00 [facility] 2022-02-24 2022-02-24 Outpatient Jamel MEEKS [facility] [id number] Univers 16:45:00 16:45:00 [facility] 2022-02-23 2022-02-23 Outpatient Jamel OLIVER [facility] [id number] Univers 13:00:00 13:55:55 MELITON huston [facility] 2022-02-23 2022-02-23 Office [facility] 1.2.840.114 [id number] Univers 13:00:00 13:55:55 Visit Meliton REBECCA 350.1.13.10 i ty [place] [id number] [address] 2022-02-19 2022-02-19 [facility] Mera, [facility] 1.2.840.114 [id number] Univers 00:00:00 00:00:00 Nikole Thakkar REBECCA 350.1.13.10 ity of [place] [id number] [address] 2022-02-11 2022-02-[address] [facility] [id number] Univers 14:00:00 15:53:51 MELITON michael [facility] 2022-02-11 2022-02-11 Office [facility] 1.2.840.114 [id number] Univers 14:00:00 15:53:51 Visit Meliton FERNANDEZ 350.1.13.10 i ty [place] [id number] [address] 2022-02-11 2022-02-11 Orders Doctor ANTOINE 1.2.840.114 [id number] Univers 00:00:00 00:00:00 Only Unassigned, COLT 350.1.13.10 [facility] 4.2.7.2.686 [place] [id number] [address] 2022-01-29 2022-01-29 [facility] [id number] Univers 13:20:00 13:20:00 MELITON huston [facility] 2022-01-29 2022-01-[address] [facility] [id number] Univers 13:20:00 13:20:00 MELITON michael [facility] 2022-01-29 2022-01-29 Telephone [facility] 1.2.840.114 [id number] Univers 00:00:00 00:00:00 Meliton FERNANDEZ 350.1.13.10 i ty [place] [id number] [address] 2022-01-28 2022-01-28 Outpatient R MELODY [facility] 1042 [id number] Univers 13:00:00 15:45:54 PETER ity of [facility] 2022-01-28 2022-01-28 [facility] 1.2.840.114 [id number] Univers 13:00:00 15:45:54 Visit Meliton FERNANDEZ 350.1.13.10 i ty [place] [phone] [address] 2022-01-24 2022-01-24 [facility] 1.2.840.114 [id number] Univers 00:00:00 00:00:00 Nikole FERNANDEZ 350.1.13.10 ity [place] [id number] [address] 2021-12-25 2021-12-25 Emergency X Angela SHANNON [facility] ERT [id number] Univers 13:43:00 16:32:00 ity of [facility] 2021-12-25 2021-12-25 Emergency Angela Shannon [facility] 1.2.840.114 [id number] Univers 13:43:00 16:32:00 Misa FERNANDEZ 350.1.13.10 i ty [place] [phone] [facility] 084 [place] 2021-11-14 2021-11-14 Orders Doctor SCHULTZ 1.2.840.114 [id number] Univers 00:00:00 00:00:00 Only Unassigned, COLT 350.1.13.10 ity of [place] [facility] 4.2.7.2.686 [place] as [phone] [facility] 009 Branch 2021-11-09 2021-11-09 [facility] 1.2.840.114 [id number] Univers 00:00:00 00:00:00 Meliton FERNANDEZ 350.1.13.10 i ty of [facility] [place] [id number] [address] 2021-10-28 2021-10-28 Imm/Inj Vaccine, [facility] 1.2.840.114 [id number] Univers 16:00:00 16:00:00 Visit Meliton Oliver 350.1.13.10 ity of [facility] 4[place] [id number] [address] 2021-10-28 2021-10-28 [facility] [id number] Univers 14:40:00 15:34:17 MELITON michael [facility] 2021-10-28 2021-10-28 [facility] 1.2.840.114 [id number] Univers 14:40:00 15:34:17 Visit Meliton FERNANDEZ 350.1.13.10 i ty [place] [id number] [address] 2021-10-28 2021-10-28 Outpatient R MELODY [facility] 1038 [id number] Univers 14:40:00 14:40:00 MELITON michael [facility] 2021-10-28 2021-10-28 [facility] [id number] Univers 14:40:00 14:40:00 MELITON huston [facility] 2021-10-27 2021-10-27 [facility] 1.2.840.114 [id number] Univers 00:00:00 00:00:00 Meliton FERNANDEZ 350.1.13.10 i ty of [facility] 4.2.7.2.[place] [id number] [address] 2021-10-26 2021-10-26 Office Sandy [facility] 1.2.840.114 [id number] Univers 14:30:00 15:00:00 Visit Delfino FERNANDEZ 350.1.13.10 i ty [place] [phone] Md dical [address] 2021-10-26 2021-10-26 [facility] [id number] Univers 14:30:00 14:30:00 DELFINO ity [facility] 2021-10-26 2021-10-26 Outpatient [facility] [id number] Univers 14:30:00 13:54:11 DELFINO ity [facility] 2021-10-26 2021-10-26 [facility] [id number] Univers 14:30:00 13:54:11 DELFINO ity [facility] 2021-10-26 2021-10-26 Orders Doctor ANTOINE 1.2.840.114 [id number] Univers 00:00:00 00:00:00 Only Unassigned, COLT 350.1.13.10 ity of [place] [facility]OS[facility] 4.2.7.2.686 [place] as [phone] [facility] 009 [place] 2021-10-07 2021-10-07 Telephone ANTOINE Viera 1.2.854.699 [id number] Univers 00:00:00 00:00:00 Didier GREGORY 350.1.13.10 i ty of HOSPITAL 4.2.7.2.686 [place] [phone] [facility] 082 [place] 2021-10-05 2021-10-05 Orders Doctor ANTOINE 1.2.840.114 [id number] Univers 00:00:00 00:00:00 Only Unassigned, COLT 350.1.13.10 ity of [place] HOSPITAL 4.2.7.2.686 [place] [phone] [facility] 009 [place] 2021-09-30 2021-09-30 [facility]phone [facility] 1.2.840.114 [id number] Univers 00:00:00 00:00:00 [facility] 350.1.13.10 it y of [place] 4.2.7.2.686 [place] as ELENA?BLEA [phone] [facility] SHERRI 044 [facility] OFFICE BUILDING 2021-09-19 2021-09-19 Refill [facility] 1.2.840.114 [id number] Univers 00:00:00 00:00:00 Meliton FERNANDEZ 350.1.13.10 i ty of [facility] 4.2.7.2.[place] [phone] Md nickyal NAL [address] [place] [address] 2021-08-06 2021-08-06 Refill [facility] 1.2.840.114 [id number] Univers 00:00:00 00:00:00 Meilton FERNANDEZ 350.1.13.10 i ty [place] [id number] [address] 2021-07-24 2021-07-24 Dock Boss 2, Adc Lab [facility] 1.2.840.114 [id number] Univers 15:30:00 15:45:00 Visit Meliton Oliver 350.1.13.10 ity of [place] [phone] [facility] 353 [facility] 2021-07-24 2021-07-[address] [facility] [id number] Univers 15:30:00 15:30:00 MELITON huston [facility] 2021-07-24 2021-07-24 Office [facility] 1.2.840.114 [id number] Univers 14:40:00 15:20:38 Visit Meliton FERNANDEZ 350.1.13.10 i ty of [facility] 4.2.7.2.[place] [id number] [address] 2021-07-24 2021-07-[address] [facility] [id number] Univers 14:40:00 15:20:38 MELITON huston [facility] 2021-07-22 2021-07-[address] [facility] [id number] Univers 14:40:00 14:40:00 MELITON huston [facility] 2021-06-17 2021-06-17 [facility] 1.2.840.114 [id number] Univers 00:00:00 00:00:00 Meliton REBECCA 350.1.13.10 i ty of [facility] 4.2.7.2.[place] [phone] Md dical NAL 044 [facility] 2021-05-04 2021-05-04 [facility] 1.2.840.114 [id number] Univers 00:00:00 00:00:00 Meliton FERNANDEZ 350.1.13.10 i ty [place] [phone] Md dical NAL 231 [facility] 2021-04-22 2021-04-22 Dock Boss 2, Adc Lab [facility] 1.2.840.114 [id number] Univers 15:15:00 15:30:00 Visit Meliton Oliver 350.1.13.10 ity of [facility] 4.2.7.2.[place] [phone] Md dical [facility] 353 [facility] 2021-04-22 2021-04-22 Office [facility] 1.2.840.114 [id number] Univers 14:40:00 14:40:00 Visit Meliton FERNANDEZ 350.1.13.10 i ty of [place]2.[place] [id number] Md dical NAL 044 [facility] 2021-04-22 2021-04-22 [facility] [id number] Univers 14:40:00 14:24:29 MELITON betzaida [facility] 2021-04-22 2021-04-22 Outpatient R MELODY [facility] [id number] Univers 13:20:00 14:24:19 MELITON siegelmichael [facility] 2021-04-22 2021-04-22 Office [facility] 1.2.840.114 [id number] Univers 13:20:00 14:24:19 Visit Meliton FERNANDEZ 350.1.13.10 i ty [place] [phone] [address] 2021-04-22 2021-04-22 Outpatient R PEYTON [facility] [id number] [facility] 14:20:00 14:20:00 ELIAS ity [facility] 2021-04-19 2021-04-19 [facility] 1.2.840.114 [id number] Univers 00:00:00 00:00:00 Meliton FERNANDEZ 350.1.13.10 i ty of [place] [phone] [address] 2021-02-23 2021-02-23 Telephone [facility] 1.2.840.114 [id number] Univers 00:00:00 00:00:00 Meliton Fernandez 350.1.13.10 i ty [place] [id number] [address] 2021-02-19 2021-02-19 [facility] 1.2.840.114 [id number] Univers 00:00:00 00:00:00 Meliton Fernandez 350.1.13.10 i ty of [place] [phone] [address] 2021-01-07 2021-01-07 Telephone ANTOINE Sparks 1.2.955.196 [id number] Univers 00:00:00 00:00:00 Aranza A COLT 350.1.13.10 ity of [facility] 4.2.7.2.686 [place] as [id number] [address] 2021-01-07 2021-01-07 Telephone ANTOINE Sparks 1.2.833.484 [id number] Univers 00:00:00 00:00:00 Aranza A COLT 350.1.13.10 ity of [facility] 4.2.7.2.686 Ash as [id number] [facility] 082 [place] 2021-01-04 2021-01-04 Refill Melody [facility] 1.2.840.114 [id number] Univers 00:00:00 00:00:00 Meliton Fernandez 350.1.13.10 i ty of [place] [phone] Md dical nal 044 [facility] 2020-10-21 2020-10-21 Dock Boss Hedy Minaya Lab Main [facility] 1.2.8 40.114 [id number] Univers 12:14:56 12:29:56 Visit Meliton Oliver 350.1.13.10 ity of [place] [phone] [facility] 353 [facility] 2020-10-21 2020-10-21 Office Melody [facility] 1.2.840.114 [id number] Univers 11:07:23 11:57:37 Visit Meliton Fernandez 350.1.13.10 i ty of [place] [id number] Md dicak nal 044 [facility] 2020-10-21 2020-10-21 Outpatient R MELODY [facility] 1033 [id number] Univers 11:00:00 11:00:00 MELITON huston of [facility] 2020-10-21 2020-10-21 Orders Doctor SCHULTZ 1.2.840.114 [id number] Univers 00:00:00 00:00:00 Only Unassigned, COLT 350.1.13.10 ity of [place] [facility] 4.2.7.2.686 Ash as [id number] [facility] 009 [place] 2020-09-22 2020-09-22 Refill Melody [facility] 1.2.840.114 [id number] Univers 00:00:00 00:00:00 Meliton Fernandez 350.1.13.10 i ty of [place] [phone] Md dical nal 044 [facility] 2020-08-27 2020-08-27 Outpatient R STARR [facility] [id number] Univers 12:40:00 12:40:00 [facility] 2020-07-30 2020-07-30 Outpatient R STARR [facility] [id number] Univers 12:40:00 12:40:00 [facility] 2020-07-16 2020-07-16 [facility] [id number] Univers 09:50:00 09:50:00 [facility] 2020-07-07 2020-07-07 [facility] 1.2.840.114 [id number] Univers 00:00:00 00:00:00 Outreach Elias MEEHAN 350.1.13.10 i ty of [facility] 4[place]2.7.2.[place] [phone] [address] 2020-05-30 2020-05-30 Refill [facility] 1.2.840.114 [id number] Univers 00:00:00 00:00:00 Meliton Fernandez 350.1.13.10 i ty of [place] [phone] Md dical nal 044 [facility] 2020-05-23 2020-05-23 Telephone [facility] 1.2.840.114 [id number] Univers 00:00:00 00:00:00 Meliton Fernandez 350.1.13.10 i ty of [place] [phone] Md dical nal 044 [facility] 2020-04-22 2020-04-22 Office [facility] 1.2.840.114 [id number] Univers 16:56:24 16:56:43 Visit Meliton Fernandez 350.1.13.10 i ty of [place].2.[place] [id number] Md dical nal [address] [place] [address] 2020-04-22 2020-04-22 Office [facility] 1.2.840.114 [id number] Univers 15:59:54 16:54:19 Visit Meliton Fernandez 350.1.13.10 i ty of [place] 4[place]2.[place] [phone] Md dicak nal [address] [place] [address] 2020-04-22 2020-04-[address] [facility] [id number] Univers 16:20:00 16:20:00 MELITON ity of [facility] 2020-04-22 2020-04-22 Refill [facility] 1.2.840.114 [id number] Univers 00:00:00 00:00:00 Meliton Fernandez 350.1.13.10 i ty [place] [phone] [address] 2020-04-22 2020-04-22 Telephone [facility] 1.2.840.114 [id number] Univers 00:00:00 00:00:00 Meliton Fernandez 350.1.13.10 i [place] 4[place] [phone] [address] 2020-04-22 2020-04-22 Orders Doctor ANTOINE 1.2.840.114 [id number] Univers 00:00:00 00:00:00 Only UnassCOLT cruz 350.1.13.10 ity of [facility] 4.2.7.2.686 [place] as [phone] [address] 2020-04-19 2020-04-19 Refill [facility] 1.2.840.114 [id number] Univers 00:00:00 00:00:00 Meliton Fernandez 350.1.13.10 i ty of [place] [phone] [address] 2020-04-19 2020-04-19 Refill Tyshawn SCHULTZ 1.2.840.114 [id number] Univers 00:00:00 00:00:00 COLT James 350.1.13.10 ity of [facility] 4.2.7.2.686 [place] as [phone] [facility] 019 [place] 2020-04-07 2020-04-07 Telephone [facility] 1.2.840.114 [id number] Univers 00:00:00 00:00:00 Meliton Fernandez 350.1.13.10 i ty of [place] [phone] [facility] 044 [facility] 2020-04-04 2020-04-04 Telephone [facility] [id number] Univers 00:00:00 00:00:00 Meliton Fernandez [id number] i [id number] [phone] [facility] [address] [facility] 2020-03-24 2020-03-24 Office [facility] [id number] Univers 07:58:24 08:40:27 Visit Nikole Fernandez [id number] it[id number] [phone] [address] 2020-03-24 2020-03-24 Outpatient R EDE [facility] [id number] Univers 08:00:00 08:00:00 NIKOLE huston [facility] 2020-03-20 2020-03-20 Orders Doctor ANTOINE 1.2.840.114 [id number] Univers 00:00:00 00:00:00 Only Unassigned, COLT 350.1.13.10 ity of [place] [facility] 4.2.7.2.686 [place] as [phone] [facility] [address] [place] 2020-03-20 2020-03-20 Telephone [facility] 1.2.840.114 7 [id number] Univers 00:00:00 00:00:00 Meliton Fernandez 350.1.13.10 i [place] [phone] [address] 2020-03-12 2020-03-12 Dock Boss Rei, Adc Lab Main [facility] 1.2.8 40.114 [id number] Univers 15:21:10 15:36:10 Visit Meliton Oliver 350.1.13.10 ity of [place] [phone] Md dical formerly [facility] 353 [facility] 2020-03-12 2020-03-12 [facility] [id number] Univers 15:30:00 15:30:00 MELITON betzaida [facility] 2020-03-12 2020-03-12 Telephone [facility] 1.2.840.114 [id number] Univers 00:00:00 00:00:00 Meliton Fernandez 350.1.13.10 i [place] of [place] [phone] [facility] 231 [facility] 2020-03-11 2020-03-11 Office [facility] 1.2.840.114 [id number] [facility] 14:50:59 19:05:30 Visit Meliton Fernandez 350.1.13.10 i [place] of [place] [phone] [facility] 044 [facility] 2020-03-11 2020-03-11 Dock Boss Rei, [facility] Main [facility] 1.2.8 40.114 [id number] [facility] 16:53:58 17:08:58 Visit Meliton Oliver 350.1.13.10 ity of [place] [phone] [facility] 353 [facility] 2020-03-11 2020-03-11 [facility] [id number] Univers 15:00:00 15:00:00 MELITON huston [facility] 2020-03-11 2020-03-11 Orders Doctor ANTOINE 1.2.840.114 [id number] Univers 00:00:00 00:00:00 Only Unassigned, COLT 350.1.13.10 ity of [place] [facility] 4.2.7.2.686 [place] as [phone] [address] 2020-03-07 2020-03-07 Nurse ANTOINE Foley 1.2.022.452 [id number] Univers 00:00:00 00:00:00 Triage Abundio GREGORY 350.1.13.10 it y of [facility] 4.2.7.2.686 [place] [phone] [address] 2020-03-04 2020-03-04 [facility] 1.2.840.114 [id number] Univers 00:00:00 00:00:00 Meliton Fernandez 350.1.13.10 i ty of [place] [phone] Md dic[address] 2020-02-27 2020-02-27 Telephone [facility] 1.2.840.114 7 [id number] Univers 00:00:00 00:00:00 Meliton Fernandez 350.1.13.10 i ty of [place] [phone] Md dic[address] 2020-02-26 2020-02-26 Telephone [facility] 1.2.840.114 7 [id number] Univers 00:00:00 00:00:00 Meliton Fernandez 350.1.13.10 i ty of [place] [phone] Md dic[address] 2020-02-18 2020-02-18 Telephone [facility] 1.2.840.114 7 [id number] Univers 00:00:00 00:00:00 Meliton Fernandez 350.1.13.10 i [place] [phone] [address] 2020-02-12 2020-02-12 [facility] [id number] Univers 14:20:00 14:20:00 MELITON huston [facility] 2020-01-20 2020-01-20 [facility] 1.2.840.114 [id number] Univers 00:00:00 00:00:00 Meliton Fernandez 350.1.13.10 [place] [phone] [address] 2020-01-20 2020-01-20 [facility] 1.2.840.114 [id number] 00:00:00 00:00:00 Meliton Fernandez 350.1.13.10 [place] 4.2.7.2.686 Professio [phone] [address] 2020-01-05 2020-01-05 [facility] 1.2.840.114 [id number] Univers 00:00:00 00:00:00 Meliton Fernandez 350.1.13.10 i ty [place] [phone] [address] 2020-01-05 2020-01-05 [facility] 1.2.840.114 [id number] 00:00:00 00:00:00 Meliton Fernandez 350.1.13.10 [place] 4.2.7.2.686 Professio [phone] [address] 2019-10-28 2019-10-28 [facility] 1.2.840.114 [id number] Univers 00:00:00 00:00:00 Meliton Fernandez 350.1.13.10 i ty of [place] [phone] [address] 2019-10-28 2019-10-28 [facility] 1.2.840.114 [id number] 00:00:00 00:00:00 Meliton Fernandez 350.1.13.10 [place] 4.2.7.2.686 Professio [phone] [address] 2019-10-22 2019-10-22 [facility] 1.2.840.114 [id number] Univers 00:00:00 00:00:00 Nikole Fernandez 350.1.13.10 ity of [place]2.[place] [phone] Md dic[address] 2019-10-22 2019-10-22 [facility] 1.2.840.114 [id number] 00:00:00 00:00:00 Nikole Fernandez 350.1.13.10 [place] 4.2.7.2.686 Professio [phone] [address] 2019-09-12 2019-09-12 [facility] [id number] Univers 09:40:00 09:40:00 MELITON huston [facility] 2019-08-20 2019-08-20 Pre Visit [facility] 1.2.840.114 7 [id number] Univers 00:00:00 00:00:00 Outreach Nikole Fernandez 350.1.13.10 ity of [place] [phone] [address] 2019-08-20 2019-08-20 [facility] 1.2.840.114 7 [id number] 00:00:00 00:00:00 Outreach Nikole Fernandez 350.1.13.10 [place] 4.2.7.2.686 Professio [phone] [address] 2019-07-31 2019-07-31 Telephone [facility] 1.2.840.114 7 [id number] [facility] 00:00:00 00:00:00 Meliton Fernandez 350.1.13.10 i ty of [place]2.[place] [phone] [address] 2019-07-31 2019-07-31 Orders Doctor ANTOINE 1.2.840.114 [id number] Univers 00:00:00 00:00:00 Only Unassigned, COLT 350.1.13.10 ity of [place] [facility] 4.2.7.2.686 [place] as [phone] [address] 2019-07-31 2019-07-31 Telephone [facility] 1.2.840.114 7 [id number] 00:00:00 00:00:00 Meliton Fernandez 350.1.13.10 [place] 4.2.7.2.686 Professio [phone] [address] 2019-07-31 2019-07-31 Orders Doctor ANTOINE 1.2.840.114 [id number] 00:00:00 00:00:00 Only Unassigned, COLT 350.1.13.10 [place] [facility] [id number] 2019-07-27 2019-07-27 Telephone [facility] 1.2.840.114 7 [id number] Univers 00:00:00 00:00:00 Meliton Fernandez 350.1.13.10 i ty of [place] [phone] Md dical [address] 2019-07-27 2019-07-27 Telephone [facility] 1.2.840.114 7 [id number] 00:00:00 00:00:00 Meliton Fernnadez 350.1.13.10 [place] 4.2.7.2.686 Professio [phone] [address] 2019-07-20 2019-07-20 Orders Doctor ANTOINE 1.2.840.114 [id number] 00:00:00 00:00:00 Only Unassigned, COLT 350.1.13.10 [place] [facility] [id number] 2019-07-20 2019-07-20 Orders Doctor ANTOINE 1.2.840.114 [id number] Univers 00:00:00 00:00:00 Only Unassigned, COLT 350.1.13.10 ity of [place] [facility] 4.2.7.2.686 [place] as [phone] [address] 2019-07-18 2019-07-18 Refill [facility] 1.2.840.114 [id number] 00:00:00 00:00:00 Meliton Fernandez 350.1.13.10 [place] 4.2.7.2.686 Professio [phone] [address] 2019-07-18 2019-07-18 [facility] 1.2.840.114 [id number] 00:00:00 00:00:00 Meliton Fernandez 350.1.13.10 [place] 4.2.7.2.686 Professio [phone] [address] 2019-07-18 2019-07-18 [facility] 1.2.840.114 [id number] Univers 00:00:00 00:00:00 Meliton Fernandez 350.1.13.10 i ty [place] [phone] [address] 2019-07-18 2019-07-18 [facility] 1.2.840.114 [id number] Univers 00:00:00 00:00:00 Meliton Fernandez 350.1.13.10 i ty of [place]2.[place] [phone] [address] 2019-07-02 2019-07-02 [facility] 1.2.840.114 7 [id number] 00:00:00 00:00:00 Meliton Fernandez 350.1.13.10 [place] 4.2.7.2.686 Professio [phone] [address] 2019-07-02 2019-07-02 [facility] 1.2.840.114 7 [id number] Univers 00:00:00 00:00:00 Meliton Fernandez 350.1.13.10 i ty of [place] 4[place].2.[place] [phone] [address] 2019-06-28 2019-06-28 [facility] 1.2.840.114 7 [id number] 00:00:00 00:00:00 Meliton Fernandez 350.1.13.10 [place] 4.2.7.2.686 Professio [phone] [address] 2019-06-28 2019-06-28 [facility] 1.2.840.114 7 [id number] [facility] 00:00:00 00:00:00 Meliton Fernandez 350.1.13.10 i ty of [place]2.[place] [phone] [facility] 044 [facility] 2019-06-22 2019-06-22 Telephone [facility] 1.2.840.114 7 [id number] Univers 00:00:00 00:00:00 Meliton Fernandez 350.1.13.10 i ty of [place].2.[place] [phone] [address] 2019-06-22 2019-06-22 Telephone [facility] 1.2.840.114 7 [id number] 00:00:00 00:00:00 Meliton Fernandez 350.1.13.10 [place] 4.2.7.2.686 Professio [phone] [address] 2019-06-19 2019-06-19 [facility] 1.2.840.114 7 [id number] [facility] 00:00:00 00:00:00 Meliton Fernandez 350.1.13.10 i ty [place]2.[place] [phone] [address] 2019-06-14 2019-06-14 Dock Boss 2, Adc Lab [facility] 1.2.840.114 [id number] [facility] 08:40:27 08:55:27 Visit Meliton Oliver 350.1.13.10 ity of [place]2.[place] [phone] [facility] 353 [facility] 2019-06-14 2019-06-14 [facility] 1.2.840.114 [id number] [facility] 07:28:15 08:33:50 Visit Meliton Fernandez 350.1.13.10 i ty [place]2.[place] [phone] [address] 2019-06-14 2019-06-14 Office [facility] 1.2.840.114 [id number] 07:28:15 08:33:50 Visit Meilton Fernandez 350.1.13.10 [place] 4.2.7.2.686 Professio [phone] [address] 2019-06-14 2019-06-14 Orders Doctor ANTOINE 1.2.840.114 [id number] Univers 00:00:00 00:00:00 Only Unassigned, COLT 350.1.13.10 ity of [place] [facility] 4.2.7.2.686 [place] as [phone] [address] 2019-06-06 2019-06-06 [facility] 1.2.840.114 [id number] Univers 00:00:00 00:00:00 Meliton Fernandez 350.1.13.10 i ty of [place].2.[place] [phone] [address] 2019-01-19 2019-01-19 Nurse Nurse, [facility] 1.2.840.114 [id number] [facility] 11:23:21 11:59:15 Visit Meliton Olvier 350.1.13.10 ity of [place] 4[place].7.2.[place] [phone] [address] 2019-01-19 2019-01-19 Telephone Melody [facility] 1.2.840.114 7 [id number] [facility] 00:00:00 00:00:00 Meliton Fernandez 350.1.13.10 i ty of [place] 4[place]2.7.2.[place] [phone] [address] 2019-01-18 2019-01-18 Nurse Nurse, [facility] 1.2.840.114 [id number] [facility] 10:49:33 11:04:49 Visit Meliton Oliver 350.1.13.10 ity of [place] 4[place].7.2.[place] [phone] [address] 2019-01-17 2019-01-17 Office Melody [facility] 1.2.840.114 [id number] [facility] 10:29:24 12:48:14 Visit Peter [place] 350.1.13.10 i ty of [place] 4.2.7.2.[place] [phone] [facility] 044 [facility] 2019-01-16 2019-01-16 Telephone [facility] 1.2.840.114 7 [id number] Univers 00:00:00 00:00:00 Nikole Fernandez 350.1.13.10 ity of [place].2.[place] [phone] [facility] 231 [facility] 2019-01-03 2019-01-09 Office [facility] 1.2.840.114 [id number] [facility] 15:33:21 16:51:22 Visit Meliton Fernandez 350.1.13.10 i ty of [place] 4.2.7.2.[place] [phone] [facility] 044 [facility] 2019-01-09 2019-01-09 Patient Sherie [facility] 1.2.840.114 [id number] Univers 00:00:00 00:00:00 Outreach [facility] 350.1.13.10 ity of [place] 4.2.7.2.686 [place] Professio [phone] [facility] 0[address] [place] Office [facility] 2019-01-08 2019-01-08 Telephone [facility] 1.2.840.114 7 [id number] Univers 00:00:00 00:00:00 Nikole Fernandez 350.1.13.10 ity of [place] 4.[place].7.2.[place] [phone] [facility] 044 [facility] 2019-01-04 2019-01-04 Dock Boss 2, Adc Lab [facility] 1.2.840.114 [id number] Univers 14:07:18 14:22:18 Visit Meliton Oliver 350.1.13.10 ity of [place] 4[place].7.2.[place] [phone] [facility] 353 [facility] 2019-01-04 2019-01-04 Orders Doctor SCHULTZ 1.2.840.114 [id number] Univers 00:00:00 00:00:00 Only Unassigned, COLT 350.1.13.10 ity of [place] [facility] 4.2.7.2.686 [place] as [phone] [address] 2018-11-10 2018-12-25 Office [facility] 1.2.840.114 [id number] [facility] 14:59:28 10:38:31 Visit Meliton Fernandez 350.1.13.10 i ty of [place] 4.2.7.2.[place] [phone] [facility] 044 [facility] 2018-12-20 2018-12-20 Dock Boss 2, Adc Lab [facility] 1.2.840.114 [id number] [facility] 15:52:05 16:07:05 Visit Meliton Oliver 350.1.13.10 ity of [place] 4.[place].7.2.[place] [phone] [facility] 353 [facility] 2018-12-20 2018-12-20 Office [facility] 1.2.840.114 [id number] [facility] 16:05:24 16:05:31 Visit Meliton Fernandez 350.1.13.10 i ty of [place] 4[place]7.2.[place] [phone] [address] 2018-12-20 2018-12-20 Office [facility] 1.2.840.114 [id number] [facility] 14:25:19 15:51:55 Visit Meliton Fernandez 350.1.13.10 i ty of [place] 4[place].7.2.[place] [phone] [address] 2018-12-20 2018-12-20 Orders Doctor ANTOINE 1.2.840.114 [id number] Univers 00:00:00 00:00:00 Only Unassigned, COLT 350.1.13.10 ity of [place] [facility] 4.2.7.2.686 [place] as [phone] [address] 2018-12-11 2018-12-11 Telephone Katie Mera 1.2.840.114 7 [id number] [facility] 00:00:00 00:00:00 Nikole Greer 350.1.13.10 ity of [place].2.[place] [phone] [address] 2018-11-24 2018-11-24 Telephone Melody [facility] 1.2.840.114 [id number] [facility] 00:00:00 00:00:00 Meliton Fernandez 350.1.13.10 i ty of [place] 4.2.7.2.[place] [phone] Md dical nal 044 [facility] Results Test Description Test Time Test Comments Results Result Comments Source POCT HEMOGLOBIN A1C TEST 2022-01-28 20:39:00 Test Item Value Reference Range Interpretation Comme nts POCT HBA1C (test code = 4548-4) 6.3 % 4-6 A Lab Interpretation (test code = 16899-1) Abnormal [facility] HEMOGLOBIN A1C [id number] 20:39:00 Test Item Value Reference Range Interpretation Comments POCT HBA1C (test code = 4548-4) 6.3 % 4-6 A Lab Interpretation (test code = Abnormal 38823-9) [facility] HEMOGLOBIN A1C [id number] 20:39:00 Test Item Value Reference Range Interpretation Comments POCT HBA1C (test code = 4548-4) 6.3 % 4-6 A Lab Interpretation (test code = Abnormal 64121-1) [facility]
[2022-02-26] MEDS ORDERED: TETRACAINE HCL 0.5% 4ML OPTH ONE (08:44)
[2022-02-26] MEDS ORDERED: FLUORESCEIN SODIUM 1 MG/WRAP ONE (08:44)
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
[2022-02-26 09:43] VITALS: BP 154/92; TEMP 97; O2SAT 99
== END 2022-02-26 09:37 | disposition home or self-care (01) ==
LOC: ER 08:28
DX: T15.91XA Foreign body on external eye, part unspecified, right eye, initial encounter (principal)
CPT/HCPCS: 99281